=== PATIENT | male | born 1950 | race Caucasian/White ===

== ENCOUNTER 2018-08-11 18:18 | Inpatient (IN) | payer BC, OTHER ==
--- NOTE | 2018-08-11 19:53 | PDOC ---
History of Present Illness - General Chief Complaint: Revisit,Wound Recheck Stated Complaint: /ADMIT Time Seen by Provider: 08/11/18 19:24 - History of Present Illness Initial Comments: 68 year old male with PMH of HTN, HLD, diabetes, dementia (undefined), resting tremor, TIAs, peripheral neuropathy, CAD (s/p stent placement), psoriasis ( unrelated), and PAD presenting with 3-4 weeks of non-heeling left heel wound and right first toe wound. Patient states that he has been being treated as an outpatient by Dr. Mcelroy with oral abx. However, he has had mild drainage from the right first toe wound and neither wound has been healing well. Denies any fevers, chills, nausea, vomiting, diarrhea, or other symptoms. 08/11/18 20:21 Past History - Past Medical History Allergies/Adverse Reactions: Allergies Allergy/AdvReac Type Severity Reaction Status Date / Time Fish Containing Products Allergy Unknown Unverified 08/12/18 17:13 egg Allergy Verified 08/12/18 17:12 fish derived Allergy Unverified 08/12/18 17:13 Home Medications: Ambulatory Orders Atorvastatin Calcium [Lipitor] 20 mg PO DAILY 08/11/18 Citalopram Hydrobromide [Celexa -] 20 mg PO DAILY 08/11/18 Insulin Lispro [Humalog] 0 unit SQ TID 08/11/18 Metoprolol Tartrate 25 mg PO DAILY 08/11/18 COPD: No Diabetes: Yes - Suicide/Smoking/Psychosocial Hx Smoking History: Never smoked Have you smoked in the past 12 months: No Information on smoking cessation initiated: No Hx Alcohol Use: No Drug/Substance Use Hx: No Review of Systems - Review of Systems Constitutional: No: Chills, Diaphoresis, Fever, Loss of Appetite, Malaise Respiratory: No: Cough, Shortness of Breath Cardiac (ROS): No: Chest Pain, Lightheadedness, Palpitations ABD/GI: No: Diarrhea, Nausea, Vomiting : No: Discharge, Frequency, Flank Pain Musculoskeletal: Yes: Back Pain, Joint Pain. No: Gout Integumentary: Yes: Lesions Neurological: No: Headache, Numbness, Paresthesia Psychiatric: No: Anxiety, Depression Hematologic/Lymphatic: No: Anemia, Blood Clots *Physical Exam - Vital Signs Last Vital Signs Temp Pulse Resp BP Pulse Ox 97.6 F 76 18 123/63 100 08/11/18 18:42 08/11/18 18:42 08/11/18 18:42 08/11/18 18:42 08/11/18 18:42 - Physical Exam General Appearance: Yes: Nourished, Appropriately Dressed. No: Apparent Distress HEENT: positive: EOMI, NOE, Normal ENT Inspection, Normal Voice Neck: positive: Trachea midline, Normal Thyroid, Supple. negative: Tender, Rigid Respiratory/Chest: positive: Lungs Clear, Normal Breath Sounds. negative: Chest Tender, Respiratory Distress, Accessory Muscle Use Cardiovascular: positive: Regular Rhythm, Regular Rate Gastrointestinal/Abdominal: positive: Normal Bowel Sounds, Flat, Soft. negative : Tender Lymphatic: negative: Adenopathy, Tenderness Musculoskeletal: positive: Other (Left heel wound 2 cm superficial. Right plantar first toe wound). negative: Normal Inspection Integumentary: positive: Normal Color, Dry, Warm Neurologic: positive: Fully Oriented, Alert, Normal Mood/Affect, Normal Response , Motor Strength 5/5, Other (baseline tremor better with movement) ED Treatment Course - LABORATORY CBC & Chemistry Diagram: 08/12/18 06:15 08/12/18 06:15 Medical Decision Making - Medical Decision Making 68 year old male with PH of diabetes, HTN, PVD,and CAD presenting from Dr. Mcelroy's office for admission or non-healing diabetic ulcers that have failed outpatient abx. Labs WNL and patient treated with vanc/ zosyn at pseudomonal dosing. Patient pending call back from hospitalist for admission. 08/11/18 20:53 *DC/Admit/Observation/Transfer Diagnosis at time of Disposition: Diabetic foot Cellulitis Qualifiers: Site of cellulitis: extremity Site of cellulitis of extremity: lower extremity Laterality: left Qualified Code(s): L03.116 - Cellulitis of left lower limb - Discharge Dispostion Condition at time of disposition: Stable Decision to Admit order: Yes - Referrals - Patient Instructions - Post Discharge Activity
[2018-08-11] MEDS ORDERED: VANCOMYCIN HCL 1,500 MG in DEXTROSE 5%-WATER - 500 ML IVPB ONE (19:56)
[2018-08-11] MEDS ORDERED: PIPERACILLIN/TAZOB 4.5 GM 4.5 GM in DEXTROSE 5%-WATER 100 ML IVPB ONE (19:56)
[2018-08-11 20:09] LABS: HEMATOCRIT 38.5 % (35.4-49); HEMOGLOBIN 12.9 GM/dL (11.7-16.9); LYMPH % 19.4 % (8-40); MCH 31.7 pg (25.7-33.7); MCHC 33.6 g/dl (32.0-35.9); MEAN CELL VOLUME 94.3 fl (80-96); MEAN PLT VOLUME 8.3 fl (7.5-11.1); MONO % 7.1 % (3.8-10.2); NEUT % 70.5 % (42.8-82.8); PLATELET COUNT 219 K/MM3 (134-434); RBC 4.08 M/mm3 (4.00-5.60); RDW 13.4 % (11.9-15.9)
[2018-08-11] MEDS ORDERED: PIPERACILLIN/TAZOB 4.5 GM 4.5 GM/100 ML BAG IVPB ONE (20:21)
[2018-08-11 20:36] LABS: INR 1.08 (0.83-1.09); PROTHROMBIN TIME (PATIENT) 12.7 SEC (9.7-13.0)
[2018-08-11 20:38] LABS: ACTIVATED PTT 31.5 SECONDS (25.2-36.5)
--- NOTE | 2018-08-11 20:50 | PDOC ---
Documentation entered by Soha Sanchez SCRIBE, acting as scribe for Marge Ramirez DO. Marge Ramirez DO: This documentation has been prepared by the Daniel chapman Daisy, SCRIBE, under my direction and personally reviewed by me in its entirety. I confirm that the documentation accurately reflects all work, treatment, procedures, and medical decision making performed by me. Attending Attestation - Resident Resident Name: Karla Ballesteros - ED Attending Attestation I have performed the following: I have examined & evaluated the patient, The case was reviewed & discussed with the resident, I agree w/resident's findings & plan - HPI HPI: 08/11/18 20:21 The patient is a 68 year old male with a significant PMH of TIAs, HTN, HLD, DM, CAD s/p stent placement, dementia, psoriasis, and PAD who presents to the emergency department sent in by Dr. Muñoz and Dr. Escalona for evaluation of chronic foot wounds to rule out osteomyelitis. Patient was seen by podiatry for his wound to the right big toe tip and left heel. Patient has failed outpatient antibiotics for his non-healing wounds and was sent in for admission and IV antibiotics. Patient is unable to provide further history secondary to his dementia. The patient denies chest pain, shortness of breath, headache and dizziness. Denies fever, chills, nausea, vomit, diarrhea and constipation. Denies dysuria, frequency, urgency and hematuria. Allergies: NKA Past surgical history: None reported. Social history: No reported alcohol, drug or cigarette use. - Physicial Exam PE: 08/11/18 20:26 ADULT PHYSICAL EXAM Constitutional: Awake, alert, oriented. No acute distress. Eyes: PERRL. EOMI. Conjunctivae are not pale. ENT: Mucous membranes are moist and intact. Posterior pharynx without exudates or erythema. Uvula midline. Neck: Supple. Full ROM. No lymphadenopathy. Cardiovascular: Regular rate. Regular rhythm. S1, S2 regular. Distal pulses are 2+ and symmetric. Pulmonary/Chest: No evidence of respiratory distress. Clear to auscultation bilaterally No wheezing, rales or rhonchi. Abdominal: Soft and non-distended. There is no tenderness. No rebound, guarding or rigidity. No organomegaly. No palpable masses. Good bowel sounds. Back: No CVA tenderness. Musculoskeletal: No edema. No cyanosis. No clubbing. Full range of motion in all extremities. No calf tenderness. (+) Faint pulse. Skin: Skin is warm and dry. (+) Psoriasis plaque. (+) Non-healing wound to the right big to tip and left heel. Neurological: Alert and oriented to person, place, and time. Cranial nerves II -XII are grossly intact. (+) Essential tremor. - Medical Decision Making 08/11/18 20:37 a/p: 68yo male with b/l foot diabetic wounds that have failed outpt abx -currently on oral abx, but still with wounds, that are not healing -no purulent drainage -pt also with psoriasis and an essential tremor -pt follows with dr. montes and dr. muñoz -will need local wound care -labs, cultures, xrays -will need admission 08/11/18 21:08 pt with CKD at baseline K 5 no elevated wbc case discussed with ARNOLD Don who accepts pt to service Heart Score/ECG Review - ECG Intrepretation Comment:: 08/11/18 20:39 sinus at 73, rbbb, LAFB, abnl ekg
[2018-08-11 20:59] LABS: ALBUMIN 3.5 g/dl (3.4-5.0); ALK PHOS 118 U/L (45-117); ANION GAP 6 MMOL/L (8-16); BILIRUBIN,TOTAL 0.6 mg/dL (0.2-1); BLOOD UREA NITROGEN 35 mg/dL (7-18); CALCIUM 8.9 mg/dL (8.5-10.1); CHLORIDE 104 mmol/L (98-107); CO2 26 mmol/L (21-32); CREATININE 1.9 mg/dL (0.55-1.3); GLUCOSE,RANDOM 282 mg/dL (74-106); SGOT/AST 30 U/L (15-37); SGPT/ALT 56 U/L (13-61); SODIUM 136 mmol/L (136-145); TOT PROT 6.6 g/dl (6.4-8.2)
--- NOTE | 2018-08-11 21:13 | HP ---
Admitting History and Physical - Primary Care Physician PCP: Suhail Calvillo - Admission Chief Complaint: Non Healing Wounds L- Heel, R Great Toe History of Present Illness: This is a 68 y/o man with a PMHx of DM, HTN, CAD, PVD, Dementia, Psoriasis. Who presents to the ED sent in by Dr. Mcelroy for admission nfor non healing diabetic wounds to L- heel and R- great toe. Patient was being treated on ABX outpatient. 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 Cardiovascular: Yes: CAD, HTN, Other (PVD) Renal/: Yes: Renal Inusuff Dermatology: Yes: Psoriasis - Smoking History Smoking history: Never smoked Have you smoked in the past 12 months: No - Alcohol/Substance Use Hx Alcohol Use: No - Social History Usual Living Arrangement: Yes: With Spouse ADL: Independent History of Recent Travel: No Home Medications - Allergies Allergies/Adverse Reactions: Allergies Allergy/AdvReac Type Severity Reaction Status Date / Time No Known Allergies Allergy Verified 08/11/18 18:44 - Home Medications Home Medications: Ambulatory Orders Atorvastatin Calcium [Lipitor] 20 mg PO DAILY 08/11/18 Citalopram Hydrobromide [Celexa -] 20 mg PO DAILY 08/11/18 Insulin Lispro [Humalog] 0 unit SQ TID 08/11/18 Metoprolol Tartrate 25 mg PO DAILY 08/11/18 Review of Systems - Review of Systems Integumentary: reports: Wound Physical Examination Vital Signs: Vital Signs Temperature 97.6 F 08/11/18 18:42 Pulse Rate 76 08/11/18 18:42 Respiratory Rate 18 08/11/18 18:42 Blood Pressure 123/63 08/11/18 18:42 O2 Sat by Pulse Oximetry (%) 100 08/11/18 18:42 Labs: CBC, BMP 08/11/18 20:00 08/11/18 20:00 Imaging - Results Cat Scan: Pending Problem List - Problems (1) Non-healing wound Code(s): [id number] - (2) Diabetes mellitus Code(s): E11.9 - TYPE 2 DIABETES MELLITUS WITHOUT COMPLICATIONS (3) HTN (hypertension) Code(s): I10 - ESSENTIAL (PRIMARY) HYPERTENSION (4) CAD (coronary artery disease) Code(s): I25.10 - ATHSCL HEART DISEASE OF [place] CORONARY ARTERY W/O ANG PCTRS (5) Dementia Code(s): F03.90 - UNSPECIFIED DEMENTIA WITHOUT BEHAVIORAL DISTURBANCE (6) PVD (peripheral vascular disease) Code(s): I73.9 - PERIPHERAL VASCULAR DISEASE, UNSPECIFIED (7) CKD (chronic kidney disease) Code(s): N18.9 - CHRONIC KIDNEY DISEASE, UNSPECIFIED (8) Psoriasis Code(s): L40.9 - PSORIASIS, UNSPECIFIED Assessment/Plan This is a 68 y/o ma admitted for Non Healing Diabetic Wounds secondary to Failed Outpatient Therapy for further evaluation of their emergent condition Visit type - Emergency Visit Emergency Visit: Yes ED Registration Date: 08/11/18 Care time: The patient presented to the Emergency Department on the above date and was hospitalized for further evaluation of their emergent condition. - New Patient This patient is new to me today: Yes Date on this admission: 08/11/18 - Critical Care Critical Care patient: No
[2018-08-11] MEDS ORDERED: HEPARIN NA (PORCINE) 5,000 UNITS/ML 1ML VIAL ONE (22:03)
[2018-08-11] MEDS: HEPARIN NA (PORCINE) 5,000 UNITS/ML 1ML VIAL SQ SCH (22:07)
[2018-08-12 01:43] VITALS: BMI 29.4
[2018-08-12] MEDS: INSULIN SLIDING SCALE (NOVOLOG) 1 VIAL SQ SCH ×4 (06:14→21:45)
[2018-08-12 07:36] LABS: EOS % 2.4 % (0-4.5); HEMATOCRIT 37.6 % (35.4-49); HEMOGLOBIN 12.6 GM/dL (11.7-16.9); LYMPH % 24.6 % (8-40); MCH 31.3 pg (25.7-33.7); MCHC 33.5 g/dl (32.0-35.9); MEAN CELL VOLUME 93.4 fl (80-96); MEAN PLT VOLUME 8.8 fl (7.5-11.1); MONO % 7.7 % (3.8-10.2); NEUT % 64.3 % (42.8-82.8); PLATELET COUNT 197 K/MM3 (134-434); RBC 4.02 M/mm3 (4.00-5.60); RDW 13.4 % (11.9-15.9); WHITE BLOOD COUNT 7.8 K/mm3 (4.0-10.0)
[2018-08-12 08:06] LABS: ANION GAP 4 MMOL/L (8-16); BLOOD UREA NITROGEN 34 mg/dL (7-18); CALCIUM 8.8 mg/dL (8.5-10.1); CHLORIDE 105 mmol/L (98-107); CO2 28 mmol/L (21-32); CREATININE 1.6 mg/dL (0.55-1.3); GLUCOSE,RANDOM 186 mg/dL (74-106); POTASSIUM 5.3 mmol/L (3.5-5.1); SODIUM 138 mmol/L (136-145)
[2018-08-12] MEDS: CITALOPRAM HYDROBROMIDE 20 MG TABLET (FP) PO SCH (09:27)
[2018-08-12] MEDS: ATORVASTATIN CA 20 MG TABLET (FP) PO SCH (09:27)
[2018-08-12] MEDS: METOPROLOL TARTRATE 25 MG TABLET (FP) PO SCH (09:27)
[2018-08-12] MEDS: HEPARIN NA (PORCINE) 5,000 UNITS/ML 1ML VIAL SQ SCH ×2 (09:28→21:45)
--- NOTE | 2018-08-12 10:09 | CON.ID ---
Consult Consult Specialty:: infectious diseases Referred by:: Hospitalist Reason for Consultation:: left heel infection - History of Present Illness Chief Complaint: pain in left heel History of Present Illness: 68 year old male with a significant PMH of TIAs, HTN, HLD, DM, CAD s/p stent placement, dementia, psoriasis, and PAD admitted for ongoing of his legs.patient has been having issues with his rt toe for long time and not healing and now with callous formation. he is also having couple of months of swelling of his left heel with ongoing pain in the left heel patient had been given abx as out patient and he has failed treatment Patient is unable to provide further history secondary to his dementia. The patient denies chest pain, shortness of breath, headache and dizziness. Denies fever, chills, nausea, vomit, diarrhea and constipation. Denies dysuria, frequency, urgency and hematuria. 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 Cardio/Vascular: Yes: CAD, HTN, Other (PVD) Renal/: Yes: Renal Inusuff Dermatology: Yes: Psoriasis - Alcohol/Substance Use Hx Alcohol Use: No - Smoking History Smoking history: Never smoked Have you smoked in the past 12 months: No - Social History ADL: Independent History of Recent Travel: No Home Medications - Allergies Allergies/Adverse Reactions: Allergies Allergy/AdvReac Type Severity Reaction Status Date / Time No Known Allergies Allergy Verified 08/11/18 18:44 - Home Medications Home Medications: Ambulatory Orders Atorvastatin Calcium [Lipitor] 20 mg PO DAILY 08/11/18 Citalopram Hydrobromide [Celexa -] 20 mg PO DAILY 08/11/18 Insulin Lispro [Humalog] 0 unit SQ TID 08/11/18 Metoprolol Tartrate 25 mg PO DAILY 08/11/18 Review of Systems - Review of Systems Constitutional: reports: No Symptoms Eyes: reports: No Symptoms HENT: reports: No Symptoms Neck: reports: No Symptoms Cardiovascular: reports: No Symptoms Respiratory: reports: No Symptoms Gastrointestinal: reports: No Symptoms Genitourinary: reports: No Symptoms Musculoskeletal: reports: Other (left heel pain) Integumentary: reports: Other (callous on the rt toe and small left heel one with swelling of the left heel) Neurological: reports: No Symptoms Endocrine: reports: No Symptoms Hematology/Lymphatic: reports: No Symptoms Psychiatric: reports: No Symptoms Physical Exam Vital Signs: Vital Signs Temperature 99 F 08/12/18 06:22 Pulse Rate 75 08/12/18 06:22 Respiratory Rate 20 08/12/18 06:22 Blood Pressure 138/88 08/12/18 06:22 O2 Sat by Pulse Oximetry (%) 100 08/11/18 22:08 Constitutional: Yes: Well Nourished, No Distress, Calm HENT: Yes: Atraumatic, Normocephalic Neck: Yes: Supple, Trachea Midline Cardiovascular: Yes: Regular Rate and Rhythm Respiratory: Yes: Regular, CTA Bilaterally Gastrointestinal: Yes: Normal Bowel Sounds, Soft Musculoskeletal: Yes: WNL Extremities: Yes: Other (swelling of the left heel) Neurological: Yes: Alert, Oriented Psychiatric: Yes: Alert, Oriented Labs: CBC, BMP 08/12/18 06:15 08/12/18 06:15 Imaging - Results Chest X-ray: Report Reviewed, Image Reviewed X-ray: Report Reviewed, Image Reviewed Assessment/Plan patient with psoriasis diabetic wounds with mild cellulitis of the great rt toe and swelling of the left heel swelling of left heel r/o osteo of rt toe psoriasis plan will start patient on ceftriaxone await for imaging studies
[2018-08-12] MEDS ORDERED: cefTRIAXone SODIUM 1 GM VIAL ONE (11:12)
[2018-08-12] MEDS ORDERED: DEXTROSE 5%-WATER - 50 ML IVPB ONE (11:13)
[2018-08-12] MEDS: CEFTRIAXONE 1 GM in DEXTROSE 5%-WATER - 50 ML IVPB SCH (11:17)
--- NOTE | 2018-08-12 11:56 | CONSULT ---
- Consultation REQUESTING PROVIDER: CONSULT REQUEST: We have been asked to surgically evaluate this patient for (L foot ulcer). PCP:Rena Thacker HISTORY OF PRESENT ILLNESS: 68 y/o M w/ PMHx 68 DM, HTN, CAD s/p CABG, Psoriasis , sent in for admission by Dr Mcelroy and Dr. Calvillo for nonhealing L heel and R great toe ulcers. Pt reports he began to have pain in his heel approximately 1 month ago. Noted a small ulcer, was seen by his DPM shortly after and treated with various courses of PO abx (unsure of names). Pt states he has had no improvement and was sent in for further workup. Denies history of tobacco use, claudication, rest pain, prior nonhealing ulcers , prior vascular evaluation/intervention. At baseline pt lives home with and [id number]. Reports ambulating unlimited distances without issue or use of assistive devices. PMHx: as above PSHx: CABG ([facility]) Home Medications Medication Instructions Recorded Atorvastatin Calcium [Lipitor] 20 mg PO DAILY 08/11/18 Citalopram Hydrobromide [Celexa -] 20 mg PO DAILY 08/11/18 Insulin Lispro [Humalog] 0 unit SQ TID 08/11/18 Metoprolol Tartrate 25 mg PO DAILY 08/11/18 Allergies Allergy/AdvReac Type Severity Reaction Status Date / Time No Known Allergies Allergy Verified 08/11/18 18:44 REVIEW OF SYSTEMS: CONSTITUTIONAL: Absent: fever, chills CARDIOVASCULAR: Absent: chest pain RESPIRATORY: Absent: cough, shortness of breath GASTROINTESTINAL: Absent: abdominal pain PHYSICAL EXAM: GENERAL: Awake, alert, and fully oriented, in no acute distress. HEAD: Normal with no signs of trauma. LUNGS: Unlabored on RA LOWER EXTREMITIES: L foot with wound over left heel approximately 1x1cm (skin intact, black in color), no erythema or drainage, + TTP. R great toe with approx 3.5x3.5cm distal tip callus/ulcer with + fat necrosis expressed. No erythema, no drainage, no foul odor, no ttp. Vasc: 2+ b/l fem, b/l pop/dp not appreciated, b/l PT palpable Skin: whole body psoriatic lesions. Vital Signs Temperature 99 F 08/12/18 06:22 Pulse Rate 75 08/12/18 06:22 Respiratory Rate 20 08/12/18 06:22 Blood Pressure 138/88 08/12/18 06:22 O2 Sat by Pulse Oximetry (%) 100 08/11/18 22:08 Lab Results WBC 7.8 K/mm3 (4.0-10.0) 08/12/18 06:15 RBC 4.02 M/mm3 (4.00-5.60) 08/12/18 06:15 Hgb 12.6 GM/dL (11.7-16.9) 08/12/18 06:15 Hct 37.6 % (35.4-49) 08/12/18 06:15 MCV 93.4 fl (80-96) 08/12/18 06:15 MCHC 33.5 g/dl (32.0-35.9) 08/12/18 06:15 RDW 13.4 % (11.9-15.9) 08/12/18 06:15 Plt Count 197 K/MM3 (134-434) 08/12/18 06:15 Sodium 138 mmol/L (136-145) 08/12/18 06:15 Potassium 5.3 mmol/L (3.5-5.1) H 08/12/18 06:15 Chloride 105 mmol/L (98-107) 08/12/18 06:15 Carbon Dioxide 28 mmol/L (21-32) 08/12/18 06:15 Anion Gap 4 MMOL/L (8-16) L 08/12/18 06:15 BUN 34 mg/dL (7-18) H 08/12/18 06:15 Creatinine 1.6 mg/dL (0.55-1.3) H 08/12/18 06:15 Random Glucose 186 mg/dL (74-106) H 08/12/18 06:15 Calcium 8.8 mg/dL (8.5-10.1) 08/12/18 06:15 INR 1.08 (0.83-1.09) 08/11/18 20:00 A/P: 68 y/o M w/ PMHx 68 DM, HTN, CAD s/p CABG, Psoriasis, sent in for admission by Dr Mcelroy and Dr. Calvillo for nonhealing L heel and R great toe ulcers. Pt Dr Stepanian pt had outpt PVRs which revealed significant vascular disease Pt with multiple b/l foot wounds/callus with no signs of infx -MRI pending per Podiatry -Abx per ID -Recommend offloading to b/l heels, Bacitracin to R great toe -Dr Birmingham will be by to evaluate wounds and need for surgical intervention (pt has elevated creatinine -would hold off on CTA at this time, Hydrate and follow creatinine -Would be helpful to view outpt PVR and any additional testing if available -Glucose control d/w attending Dr Birmingham
[2018-08-12] MEDS ORDERED: SODIUM POLYSTYRENE SULFONATE 15 GM/60 ML BOTTLE PO ONE (12:00)
--- NOTE | 2018-08-12 12:01 | PN ---
Progress Note, Physician Chief Complaint: Foot Wound CKD DM History of Present Illness: Previous notes and events reviewed awake and alert NAD K+ 5.3 denies chest pain or SOB - Current Medication List Current Medications: Active Medications Atorvastatin Calcium (Lipitor -) 20 mg PO DAILY [facility] Last Admin: 08/12/18 09:27 Dose: 20 mg Citalopram Hydrobromide (Celexa -) 20 mg PO DAILY [facility] Last Admin: 08/12/18 09:27 Dose: 20 mg Heparin Sodium (Porcine) (Heparin -) 5,000 unit SQ BID [facility] Last Admin: 08/12/18 09:28 Dose: 5,000 unit Ceftriaxone Sodium 1 gm/ (Dextrose) 50 mls @ 100 mls/hr IVPB DAILY [facility]; Protocol Last Admin: 08/12/18 11:17 Dose: 100 mls/hr Insulin Aspart (Novolog Vial Sliding Scale -) 1 vial SQ ACHS [facility]; Protocol Last Admin: 08/12/18 06:14 Dose: 2 units Metoprolol Tartrate (Lopressor -) 25 mg PO DAILY [facility] Last Admin: 08/12/18 09:27 Dose: 25 mg - Objective Vital Signs: Vital Signs Temperature 99 F 08/12/18 06:22 Pulse Rate 75 08/12/18 06:22 Respiratory Rate 20 08/12/18 06:22 Blood Pressure 138/88 08/12/18 06:22 O2 Sat by Pulse Oximetry (%) 100 08/11/18 22:08 Constitutional: Yes: No Distress, Calm Eyes: Yes: Conjunctiva Clear HENT: Yes: Atraumatic Cardiovascular: Yes: Regular Rate and Rhythm Respiratory: Yes: Regular, CTA Bilaterally Gastrointestinal: Yes: Normal Bowel Sounds, Soft Genitourinary: Yes: Incontinence Musculoskeletal: Yes: Muscle Weakness Extremities: Yes: Erythema Edema: No Integumentary: Yes: Other (erythema R great toe) Neurological: Yes: Alert, Pre-Existing Deficit Psychiatric: Yes: Alert Labs: CBC, BMP 08/12/18 06:15 08/12/18 06:15 INR, PTT INR 1.08 (0.83-1.09) 08/11/18 20:00 Problem List - Problems (1) CAD (coronary artery disease) Assessment/Plan: -continue with Atorvastatin Code(s): I25.10 - ATHSCL HEART DISEASE OF [place] CORONARY ARTERY W/O ANG PCTRS (2) CKD (chronic kidney disease) Assessment/Plan: -Renal on board -pending renal US -avoid nephrotoxins, NSAIDs Code(s): N18.9 - CHRONIC KIDNEY DISEASE, UNSPECIFIED (3) Dementia Assessment/Plan: -neurology consult - Code(s): F03.90 - UNSPECIFIED DEMENTIA WITHOUT BEHAVIORAL DISTURBANCE (4) HTN (hypertension) Assessment/Plan: -continue Metoprolol -low Na diet Code(s): I10 - ESSENTIAL (PRIMARY) HYPERTENSION (5) Non-healing wound Assessment/Plan: -Podiatry and ID on board -IV Ceftriaxone -no leukocytosis -afebrile Code(s): [id number] - (6) Hyperkalemia Assessment/Plan: -K 5.3--Kayexalte 15g PO x 1 -Kayexalate 30g M-W-F -monitor electrolytes daily Code(s): E87.5 - HYPERKALEMIA (7) Diabetes mellitus Assessment/Plan: -BGM ACHS -ISS -diabetic diet Code(s): E11.9 - TYPE 2 DIABETES MELLITUS WITHOUT COMPLICATIONS Assessment/Plan see problem list
--- NOTE | 2018-08-12 12:15 | CONSULT ---
Consult Consult Specialty:: podiatry Reason for Consultation:: wound right big toe. wound left heel. 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 Cardio/Vascular: Yes: CAD, HTN, Other (PVD) Renal/: Yes: Renal Inusuff Dermatology: Yes: Psoriasis - Alcohol/Substance Use Hx Alcohol Use: No - Smoking History Smoking history: Never smoked Have you smoked in the past 12 months: No - Social History ADL: Independent History of Recent Travel: No Home Medications - Allergies Allergies/Adverse Reactions: Allergies Allergy/AdvReac Type Severity Reaction Status Date / Time Fish Containing Products Allergy Unknown Unverified 08/12/18 17:13 egg Allergy Verified 08/12/18 17:12 fish derived Allergy Unverified 08/12/18 17:13 - Home Medications Home Medications: Ambulatory Orders Atorvastatin Calcium [Lipitor] 20 mg PO DAILY 08/11/18 Citalopram Hydrobromide [Celexa -] 20 mg PO DAILY 08/11/18 Insulin Lispro [Humalog] 0 unit SQ TID 08/11/18 Metoprolol Tartrate 25 mg PO DAILY 08/11/18 Physical Exam Vital Signs: Vital Signs Temperature 99 F 08/12/18 06:22 Pulse Rate 75 08/12/18 06:22 Respiratory Rate 20 08/12/18 06:22 Blood Pressure 138/88 08/12/18 06:22 O2 Sat by Pulse Oximetry (%) 100 08/11/18 22:08 Extremities: Yes: Other (right big toe cellulitis with grade wound, -drainage, -mal odor left heel eschar, -drainage, -cellulitis,) Labs: CBC, BMP 08/12/18 06:15 08/12/18 06:15 Assessment/Plan r/o om wounds b/l feet santyl to all wounds. mri b/l feet. santyl to wounds. labs ordered.
--- NOTE | 2018-08-12 12:15 | EKG ---
Test Reason : Blood Pressure : / mmHG Vent. Rate : 073 BPM Atrial Rate : 073 BPM P-R Int : 192 ms QRS Dur : 140 ms QT Int : 422 ms P-R-T Axes : 035 -69 039 degrees QTc Int : 464 ms NORMAL SINUS RHYTHM POSSIBLE LEFT ATRIAL ENLARGEMENT RIGHT BUNDLE BRANCH BLOCK LEFT ANTERIOR FASCICULAR BLOCK BIFASCICULAR BLOCK ABNORMAL ECG WHEN COMPARED WITH ECG OF 16-JUN-2000 16:46, (RBBB AND LEFT ANTERIOR FASCICULAR BLOCK) IS NOW PRESENT Confirmed by GAVINO CONDON MD ([id number]) on 08/12/2018 12:14:57 PM Referred By: Confirmed By:GAVINO CONDON MD
--- NOTE | 2018-08-12 13:59 | CONSULT ---
Consult - text type - Consultation Consultation Note: Renal consult for JAMARCUS vs. CKD This is a 68 year old gentleman with hx of CKD, chronic hyperkalemia ( on kayexalate 3x weekly), DM, Hypertension, CAD s/p PCI/CABG, PVD presented with non-healing lower extremity ulcers and noted to have Cr of 1.8. [facility] ~[facility]. Denies any sob, cp, abd pain, fever, chils , N/V/D. No NSAID use, no recent contrast expsoure, no fleet enemas. No POLLY/ARB taken at home. Making urine as per patient. No flank or bladder pain. No symptoms of retention. Denies any LE edema. No recent antibiotic use. PMhx: as above Allergies: NKDA Family Hx: NC Social Hx: No T/A/D ROS: as per HPI Home Medications Medication Instructions Recorded Atorvastatin Calcium [Lipitor] 20 mg PO DAILY 08/11/18 Citalopram Hydrobromide [Celexa -] 20 mg PO DAILY 08/11/18 Insulin Lispro [Humalog] 0 unit SQ TID 08/11/18 Metoprolol Tartrate 25 mg PO DAILY 08/11/18 Vital Signs Temperature 98.6 F 08/12/18 13:48 Pulse Rate 67 08/12/18 13:48 Respiratory Rate 18 08/12/18 13:48 Blood Pressure 100/51 L 08/12/18 13:48 O2 Sat by Pulse Oximetry (%) 100 08/12/18 09:00 NAD awake and alert neck supple, no JVD RRR, No M/R CTA, no rales or wheeze soft NT/ND no LE edema, clubbing or cyanosis CBC, BMP 08/12/18 06:15 08/12/18 06:15 Current Medications Atorvastatin Calcium (Lipitor -) 20 mg PO DAILY [facility] Last Admin: 08/12/18 09:27 Dose: 20 mg Citalopram Hydrobromide (Celexa -) 20 mg PO DAILY [facility] Last Admin: 08/12/18 09:27 Dose: 20 mg Heparin Sodium (Porcine) (Heparin -) 5,000 unit SQ BID [facility] Last Admin: 08/12/18 09:28 Dose: 5,000 unit Ceftriaxone Sodium 1 gm/ (Dextrose) 50 mls @ 100 mls/hr IVPB DAILY [facility]; Protocol Last Admin: 08/12/18 11:17 Dose: 100 mls/hr Insulin Aspart (Novolog Vial Sliding Scale -) 1 vial SQ ACHS [facility]; Protocol Last Admin: 08/12/18 12:03 Dose: 2 units Metoprolol Tartrate (Lopressor -) 25 mg PO DAILY [facility] Last Admin: 08/12/18 09:27 Dose: 25 mg 68 year old gentleman with hx of CKD, chronic hyperkalemia (on kayexalate 3x weekly), DM, Hypertension, CAD s/p PCI/CABG, PVD presented with non-healing lower extremity ulcers and noted to have Cr of 1.8. #JAMARCUS on CKD #CKD stage 3 #Chronic Hyperkalemia #LE ulcers/PVD #DM #Hypertension #CAD Check urine stuides and renal US Continue trial of isotonic IVF for additional 24 hours continue kayexlate 30g on No acute need for CREDIT INVESTIGATOR continue Abx as per primary team Podiatry follow up Insulin as per primary team Avoid IV contrast, NSAIDs, POLLY/ARB for the time being Thank you Will follow Harpal Luis DO
[2018-08-12 15:58] LABS: URINE APPEARANCE CLEAR; URINE BILIRUBIN NEGATIVE (NEGATIVE); URINE COLOR YELLOW; URINE GLUCOSE (UA) 1+ (NEGATIVE); URINE KETONE NEGATIVE (NEGATIVE); URINE LEUK ESTERASE NEGATIVE (NEGATIVE); URINE NITRITE NEGATIVE (NEGATIVE); URINE PROTEIN NEGATIVE (NEGATIVE); URINE UROBILINOGEN 0.2 mg/dL (0.2-1.0)
--- NOTE | 2018-08-12 16:52 | PN ---
Progress Note (short form) - Note Progress Note: Vascular Surgery Pt seen and examined. Spoke to pt and at bedside. Pt has bilateral great toe lesions. Right great toe has ulcer there for 3 weeks. Pt does not have palpable pulses and is a diabetic with neuropathy. Pt has renal insuff -- creatinine 1.6. Cannot get CTA. MRI pending to rule out osteo. Pt will need RLE angiogram with CO2 to check circulation. Once cleared from a cardiac and medical standpoint - will proceed. Jay Birmingham DO
[2018-08-12] MEDS: SODIUM CHLORIDE 1,000 ML IV SCH (17:13)
--- NOTE | 2018-08-12 20:19 | CONSULT ---
Consult - text type - Consultation Consultation Note: NEUROLOGY CONSULTATION is greatly appreciated: Events reviewed and discussed with patient's . This 68 yo RH m man with h/o HTN, Chol, DM, on Atorvastatin; Citalopram 20 mg; Insulin; and Metoprolol Tartrate 25 mg, is admitted due to poorly healing foot wounds. His describes progressive cognitive decline since an episode of (? prolonged?) hypoglycemia 3-4 years ago. Was on Donepezil but had syncope (both donepezil and metoprolol were reportedly D/C'ed). Now 1-2 years of progressive rest tremors. Followed by Dr. Kevin Cardona at [facility]. Apparently failed trial of pramipexole? Recent Dopamine Transporter (DIANA) scan negative for Parkinson's disease (PD). His notes additional mood and behavioral changes that are "a little better " on Citalopram. MRI of brain (performed here in 2007) shows early atrophy, mild ventriculomegally, and microvascular changes. DAVID: Diffuse psoriatic changes. No bruits. No head trauma. No DP pulses. Atrophic changes both feet, calves. NEURO: Awake, alert, cooperative. Doesn't know he is in a hospital. 2011. Jose. Recalls 0 of 3 at 1 min. CN: Rhythmic jaw tremor (6 cps). Full simmons ad EOM's. Sl slowed tongue MARLINE's. Gag OK Motor: Intermittent, rhythmic rest tremor (4-5 cps) B/L. + Cogwheel rigidity. Normal strength. Sl decreased MARLINE's. Brisk reflexes except AJ's. Plantars silent. Coord: No FTN dystaxia Sensory: Reduced vibration to both ankles. Romberg + Gait: Erect posture, shortened strides. No festination. IMP: Moderately severe, B/L cerebral dysfunction (OMS, Chronic)- Probably Alzheimer's disease (AD) vs microvascular Extrapyramidal tremor. May be Parkinsonism on a vascular basis (Not PD) Diabetic peripheral neuropathy. SUGGEST: Check B12, TSH, RPR Update MRI of brain (C-) Review treatment records- a trial of L-Dopa should be considered if not done. Thank you very much, Barrington Garcia MD
[2018-08-12] MEDS: COLLAGENASE CLOSTRIDIUM HIST. 30 GRAMS TUBE TP SCH (21:45)
--- NOTE | 2018-08-13 00:42 | CONSULT ---
Consult Consult Specialty:: endocrine Referred by:: evelin muniz np Reason for Consultation:: uncontrolled dm - History of Present Illness Chief Complaint: diabetic foot infection History of Present Illness: 68 y/o man with a PMHx of DM, HTN, CAD, PVD, Dementia, Psoriasis. Who presented with non healing diabetic wounds to L- heel and R- great toe. Patient was being treated on ABX outpatient,however failed therapy and requires iv antibiotic and surgical care for non healing foot infection,high sugars,he has had difficulty controlling sugars,despite family support and insulin pump therapy,he has labile blood sugars. 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 Cardio/Vascular: Yes: CAD, HTN, Other (PVD) Renal/: Yes: Renal Inusuff Dermatology: Yes: Psoriasis - Alcohol/Substance Use Hx Alcohol Use: No - Smoking History Smoking history: Never smoked Have you smoked in the past 12 months: No - Social History ADL: Independent History of Recent Travel: No Home Medications - Allergies Allergies/Adverse Reactions: Allergies Allergy/AdvReac Type Severity Reaction Status Date / Time Fish Containing Products Allergy Unknown Unverified 08/12/18 17:13 egg Allergy Verified 08/12/18 17:12 fish derived Allergy Unverified 08/12/18 17:13 - Home Medications Home Medications: Ambulatory Orders Atorvastatin Calcium [Lipitor] 20 mg PO DAILY 08/11/18 Citalopram Hydrobromide [Celexa -] 20 mg PO DAILY 08/11/18 Insulin Lispro [Humalog] 0 unit SQ TID 08/11/18 Metoprolol Tartrate 25 mg PO DAILY 08/11/18 Review of Systems - Review of Systems Constitutional: reports: Weakness Eyes: reports: Blurred Vision HENT: reports: No Symptoms Neck: reports: No Symptoms Cardiovascular: reports: Shortness of Breath Respiratory: reports: Exercise Intolerance, SOB on Exertion Gastrointestinal: reports: Constipation Genitourinary: reports: No Symptoms Breasts: reports: No Symptoms Reported Neurological: reports: Confusion, Dizziness, Incoordination, Pre-Existing Deficit, Tremors, Unsteady Gait, Weakness Endocrine: reports: Unexplained Weight Gain Physical Exam Vital Signs: Vital Signs Temperature 98.3 F 08/12/18 23:28 Pulse Rate 86 08/12/18 23:28 Respiratory Rate 20 08/12/18 23:28 Blood Pressure 121/78 08/12/18 23:28 O2 Sat by Pulse Oximetry (%) 100 08/12/18 21:00 Constitutional: Yes: Anxious Eyes: Yes: EOM Intact HENT: Yes: Normocephalic Neck: Yes: Trachea Midline Cardiovascular: Yes: Regular Rate and Rhythm Respiratory: Yes: CTA Bilaterally Gastrointestinal: Yes: Normal Bowel Sounds ...Rectal Exam: Yes: Deferred Breast(s): Yes: WNL Musculoskeletal: Yes: Muscle Pain, Muscle Weakness Extremities: Yes: Cold, Delayed Capillary Refill Edema: LLE: Trace, RLE: Trace Integumentary: Yes: Rash, Onychomycosis, Venous Stasis Changes Wound/Incision: Yes: Dressing Removed, Draining, Excoriated Neurological: Yes: Alert, Oriented, Tremors, Unsteady Gait Labs: CBC, BMP 08/12/18 06:15 08/12/18 06:15 Problem List - Problems (1) CKD (chronic kidney disease) Code(s): N18.9 - CHRONIC KIDNEY DISEASE, UNSPECIFIED (2) Cellulitis Code(s): L03.90 - CELLULITIS, UNSPECIFIED Qualifiers: Site of cellulitis: extremity Site of cellulitis of extremity: lower extremity Laterality: left Qualified Code(s): L03.116 - Cellulitis of left lower limb (3) Dementia Code(s): F03.90 - UNSPECIFIED DEMENTIA WITHOUT BEHAVIORAL DISTURBANCE (4) Diabetes mellitus Code(s): E11.9 - TYPE 2 DIABETES MELLITUS WITHOUT COMPLICATIONS (5) Diabetic foot Code(s): E11.8 - TYPE 2 DIABETES MELLITUS WITH UNSPECIFIED COMPLICATIONS (6) HTN (hypertension) Code(s): I10 - ESSENTIAL (PRIMARY) HYPERTENSION (7) Hyperkalemia Code(s): E87.5 - HYPERKALEMIA Assessment/Plan Current Active Problems CAD (coronary artery disease) (Acute) CKD (chronic kidney disease) (Acute) Cellulitis (Acute) Dementia (Acute) Diabetes mellitus (Acute) Diabetic foot (Acute) HTN (hypertension) (Acute) Hyperkalemia (Acute) Non-healing wound (Acute) PVD (peripheral vascular disease) (Acute) Psoriasis (Acute) Abnormal Lab Results 08/12/18 08/12/18 08/12/18 06:15 14:36 14:36 Potassium 5.3 H Anion Gap 4 L BUN 34 H Creatinine 1.6 H Random Glucose 186 H Urine Glucose (UA) 1+ H U Random Total Protein 29.8 H Laboratory Results - last 24 hr 08/12/18 08/12/18 08/12/18 06:13 06:15 06:15 WBC 7.8 RBC 4.02 Hgb 12.6 Hct 37.6 MCV 93.4 MCH 31.3 MCHC 33.5 RDW 13.4 Plt Count 197 MPV 8.8 Absolute Neuts (auto) 5.0 Neutrophils % 64.3 Lymphocytes % 24.6 D Monocytes % 7.7 Eosinophils % 2.4 Basophils % 1.0 Nucleated RBC % 0 Sodium 138 Potassium 5.3 H Chloride 105 Carbon Dioxide 28 Anion Gap 4 L BUN 34 H Creatinine 1.6 H Creat Clearance w eGFR 43.20 POC Glucometer 185 Random Glucose 186 H Calcium 8.8 Urine Color Urine Appearance Urine pH Ur Specific [place] Urine Protein Urine Glucose (UA) Urine Ketones Urine Blood Urine Nitrite Urine Bilirubin Urine Urobilinogen Ur Leukocyte Esterase U Random Total Protein Ur Random Sodium Ur Random Urea Nitrogn 08/12/18 08/12/18 08/12/18 11:17 14:36 14:36 WBC RBC Hgb Hct MCV MCH MCHC RDW Plt Count MPV Absolute Neuts (auto) Neutrophils % Lymphocytes % Monocytes % Eosinophils % Basophils % Nucleated RBC % Sodium Potassium Chloride Carbon Dioxide Anion Gap BUN Creatinine Creat Clearance w eGFR POC Glucometer 157 Random Glucose Calcium Urine Color Yellow Urine Appearance Clear Urine pH 6.0 Ur Specific [place] 1.022 Urine Protein Negative Urine Glucose (UA) 1+ H Urine Ketones Negative Urine Blood Negative Urine Nitrite Negative Urine Bilirubin Negative Urine Urobilinogen 0.2 Ur Leukocyte Esterase Negative U Random Total Protein Ur Random Sodium 107 Ur Random Urea Nitrogn 08/12/18 08/12/18 08/12/18 14:36 14:36 17:11 WBC RBC Hgb Hct MCV MCH MCHC RDW Plt Count MPV Absolute Neuts (auto) Neutrophils % Lymphocytes % Monocytes % Eosinophils % Basophils % Nucleated RBC % Sodium Potassium Chloride Carbon Dioxide Anion Gap BUN Creatinine Creat Clearance w eGFR POC Glucometer 210 Random Glucose Calcium Urine Color Urine Appearance Urine pH Ur Specific [place] Urine Protein Urine Glucose (UA) Urine Ketones Urine Blood Urine Nitrite Urine Bilirubin Urine Urobilinogen Ur Leukocyte Esterase U Random Total Protein 29.8 H Ur Random Sodium Ur Random Urea Nitrogn 909 08/12/18 20:44 WBC RBC Hgb Hct MCV MCH MCHC RDW Plt Count MPV Absolute Neuts (auto) Neutrophils % Lymphocytes % Monocytes % Eosinophils % Basophils % Nucleated RBC % Sodium Potassium Chloride Carbon Dioxide Anion Gap BUN Creatinine Creat Clearance w eGFR POC Glucometer 190 Random Glucose Calcium Urine Color Urine Appearance Urine pH Ur Specific [place] Urine Protein Urine Glucose (UA) Urine Ketones Urine Blood Urine Nitrite Urine Bilirubin Urine Urobilinogen Ur Leukocyte Esterase U Random Total Protein Ur Random Sodium Ur Random Urea Nitrogn plan: bgm qid novolog doses scaled levemir 15 units daily ck tsh free t4
[2018-08-13] MEDS: INSULIN SLIDING SCALE (NOVOLOG) 1 VIAL SQ SCH ×4 (06:29→21:34)
[2018-08-13] MEDS: INSULIN (LEVEMIR) 100 UNITS/ML UNITS SQ SCH (06:30)
[2018-08-13 08:21] LABS: BASO % 0.9 % (0-2.0); EOS % 2.7 % (0-4.5); HEMATOCRIT 38.8 % (35.4-49); LYMPH % 20.7 % (8-40); MCH 31.6 pg (25.7-33.7); MCHC 33.6 g/dl (32.0-35.9); MEAN CELL VOLUME 94.2 fl (80-96); MEAN PLT VOLUME 8.6 fl (7.5-11.1); MONO % 7.5 % (3.8-10.2); NEUT % 68.2 % (42.8-82.8); PLATELET COUNT 186 K/MM3 (134-434); RBC 4.12 M/mm3 (4.00-5.60); RDW 13.3 % (11.9-15.9); WHITE BLOOD COUNT 7.2 K/mm3 (4.0-10.0)
[2018-08-13 08:34] LABS: ALBUMIN 3.1 g/dl (3.4-5.0); ALK PHOS 96 U/L (45-117); ANION GAP 7 MMOL/L (8-16); BLOOD UREA NITROGEN 29 mg/dL (7-18); CALCIUM 8.5 mg/dL (8.5-10.1); CHLORIDE 106 mmol/L (98-107); CO2 27 mmol/L (21-32); CREATININE 1.4 mg/dL (0.55-1.3); GLUCOSE,RANDOM 129 mg/dL (74-106); MAGNESIUM 2.1 mg/dL (1.8-2.4); PHOSPHOROUS 3.6 mg/dL (2.5-4.9); POTASSIUM 4.6 mmol/L (3.5-5.1); SGOT/AST 20 U/L (15-37); SGPT/ALT 37 U/L (13-61); SODIUM 140 mmol/L (136-145); TOT PROT 5.9 g/dl (6.4-8.2)
[2018-08-13] MEDS ORDERED: DEXTROSE 5%-WATER - 50 ML IVPB ONE (09:24)
[2018-08-13] MEDS ORDERED: cefTRIAXone SODIUM 1 GM VIAL ONE (09:24)
[2018-08-13 09:31] LABS: ERYTHROCYTE SEDIMENTATION RATE 16 mm/hr (0-20)
[2018-08-13] MEDS: SODIUM POLYSTYRENE SULFONATE 15 GM/60 ML BOTTLE PO SCH (10:37)
[2018-08-13] MEDS: COLLAGENASE CLOSTRIDIUM HIST. 30 GRAMS TUBE TP SCH (10:39)
[2018-08-13] MEDS: HEPARIN NA (PORCINE) 5,000 UNITS/ML 1ML VIAL SQ SCH ×2 (10:39→21:33)
[2018-08-13] MEDS: METOPROLOL TARTRATE 25 MG TABLET (FP) PO SCH (10:39)
[2018-08-13] MEDS: CEFTRIAXONE 1 GM in DEXTROSE 5%-WATER - 50 ML IVPB SCH (10:39)
[2018-08-13] MEDS: ATORVASTATIN CA 20 MG TABLET (FP) PO SCH (10:39)
[2018-08-13] MEDS: CITALOPRAM HYDROBROMIDE 20 MG TABLET (FP) PO SCH (10:39)
--- NOTE | 2018-08-13 10:50 | PN ---
Progress Note, Physician History of Present Illness: stable no new issues - Current Medication List Current Medications: Active Medications Atorvastatin Calcium (Lipitor -) 20 mg PO DAILY [facility] Last Admin: 08/13/18 10:39 Dose: 20 mg Citalopram Hydrobromide (Celexa -) 20 mg PO DAILY [facility] Last Admin: 08/13/18 10:39 Dose: 20 mg Collagenase (Santyl -) 1 applic TP DAILY [facility]; Protocol Last Admin: 08/13/18 10:39 Dose: 1 applic Heparin Sodium (Porcine) (Heparin -) 5,000 unit SQ BID [facility] Last Admin: 08/13/18 10:39 Dose: 5,000 unit Ceftriaxone Sodium 1 gm/ (Dextrose) 50 mls @ 100 mls/hr IVPB DAILY [facility]; Protocol Last Admin: 08/13/18 10:39 Dose: 100 mls/hr Sodium Chloride (Normal Saline -) 1,000 mls @ 100 mls/hr IV ASDIR [facility] Stop: 08/13/18 16:44 Last Admin: 08/12/18 17:13 Dose: 100 mls/hr Insulin Aspart (Novolog Vial Sliding Scale -) 1 vial SQ ACHS [facility]; Protocol Last Admin: 08/13/18 06:29 Dose: Not Given Insulin Detemir (Levemir Vial) 15 units SQ AM [facility] Last Admin: 08/13/18 06:30 Dose: 15 units Metoprolol Tartrate (Lopressor -) 25 mg PO DAILY [facility] Last Admin: 08/13/18 10:39 Dose: 25 mg Sodium Polystyrene Sulfonate (Kayexalate -) 30 gm PO [id number]@1000 [facility] Last Admin: 08/13/18 10:37 Dose: 30 gm - Objective Vital Signs: Vital Signs Temperature 97.8 F 08/13/18 05:53 Pulse Rate 76 08/13/18 05:53 Respiratory Rate 20 08/13/18 05:53 Blood Pressure 155/80 08/13/18 05:53 O2 Sat by Pulse Oximetry (%) 100 08/12/18 21:00 Constitutional: Yes: No Distress, Calm Cardiovascular: Yes: Regular Rate and Rhythm Respiratory: Yes: Regular, CTA Bilaterally Gastrointestinal: Yes: Normal Bowel Sounds, Soft Musculoskeletal: Yes: WNL Extremities: Yes: Other Neurological: Yes: Alert, Oriented Psychiatric: Yes: Alert, Oriented Labs: CBC, BMP 08/13/18 06:15 04/19/19 06:15 INR, PTT INR 1.08 (0.83-1.09) 08/11/18 20:00 Assessment/Plan patient with psoriasis diabetic wounds with mild cellulitis of the great rt toe and swelling of the left heel swelling of left heel r/o osteo of rt toe psoriasis plan will start patient on ceftriaxone await for report on imaging studies
--- NOTE | 2018-08-13 11:07 | PN ---
Progress Note, Physician Chief Complaint: Foot Wound CKD DM History of Present Illness: Previous notes and events reviewed awake and alert NAD denies chest pain or SOB - Current Medication List Current Medications: Active Medications Atorvastatin Calcium (Lipitor -) 20 mg PO DAILY [facility] Last Admin: 08/13/18 10:39 Dose: 20 mg Citalopram Hydrobromide (Celexa -) 20 mg PO DAILY [facility] Last Admin: 08/13/18 10:39 Dose: 20 mg Collagenase (Santyl -) 1 applic TP DAILY [facility]; Protocol Last Admin: 08/13/18 10:39 Dose: 1 applic Heparin Sodium (Porcine) (Heparin -) 5,000 unit SQ BID [facility] Last Admin: 08/13/18 10:39 Dose: 5,000 unit Ceftriaxone Sodium 1 gm/ (Dextrose) 50 mls @ 100 mls/hr IVPB DAILY [facility]; Protocol Last Admin: 08/13/18 10:39 Dose: 100 mls/hr Sodium Chloride (Normal Saline -) 1,000 mls @ 100 mls/hr IV ASDIR [facility] Stop: 08/13/18 16:44 Last Admin: 08/12/18 17:13 Dose: 100 mls/hr Insulin Aspart (Novolog Vial Sliding Scale -) 1 vial SQ ACHS [facility]; Protocol Last Admin: 08/13/18 06:29 Dose: Not Given Insulin Detemir (Levemir Vial) 15 units SQ AM [facility] Last Admin: 08/13/18 06:30 Dose: 15 units Metoprolol Tartrate (Lopressor -) 25 mg PO DAILY [facility] Last Admin: 08/13/18 10:39 Dose: 25 mg Sodium Polystyrene Sulfonate (Kayexalate -) 30 gm PO MoWeFr@1000 [facility] Last Admin: 08/13/18 10:37 Dose: 30 gm - Objective Vital Signs: Vital Signs Temperature 97.8 F 08/13/18 05:53 Pulse Rate 76 08/13/18 05:53 Respiratory Rate 20 08/13/18 05:53 Blood Pressure 155/80 08/13/18 05:53 O2 Sat by Pulse Oximetry (%) 100 08/12/18 21:00 Constitutional: Yes: No Distress, Calm Eyes: Yes: Conjunctiva Clear HENT: Yes: Atraumatic Cardiovascular: Yes: Regular Rate and Rhythm Respiratory: Yes: Regular, CTA Bilaterally Gastrointestinal: Yes: Normal Bowel Sounds, Soft Musculoskeletal: Yes: Muscle Weakness Extremities: Yes: WNL Edema: No Neurological: Yes: Alert, Oriented Psychiatric: Yes: Alert Labs: CBC, BMP 08/13/18 06:15 08/13/18 06:15 INR, PTT INR 1.08 (0.83-1.09) 08/11/18 20:00 Microbiology 08/11/18 20:00 Blood - Peripheral Venous Blood Culture - Preliminary NO GROWTH OBTAINED AFTER 24 HOURS, INCUBATION TO CONTINUE FOR 4 DAYS. 08/11/18 20:00 Blood - Peripheral Venous Blood Culture - Preliminary NO GROWTH OBTAINED AFTER 24 HOURS, INCUBATION TO CONTINUE FOR 4 DAYS. Problem List - Problems (1) CAD (coronary artery disease) Assessment/Plan: -continue with Atorvastatin Code(s): I25.10 - ATHSCL HEART DISEASE OF [place] CORONARY ARTERY W/O ANG PCTRS (2) CKD (chronic kidney disease) Assessment/Plan: -Renal on board -Renal US shows no hydronephrosis, no discrete mass, lesion, or calculus -BUN/Cr 29/1.4 -avoid nephrotoxins, NSAIDs Code(s): N18.9 - CHRONIC KIDNEY DISEASE, UNSPECIFIED (3) Dementia Assessment/Plan: -neurology on board -Brain MRI ordered Code(s): F03.90 - UNSPECIFIED DEMENTIA WITHOUT BEHAVIORAL DISTURBANCE (4) HTN (hypertension) Assessment/Plan: -continue Metoprolol -low Na diet Code(s): I10 - ESSENTIAL (PRIMARY) HYPERTENSION (5) Non-healing wound Assessment/Plan: -Podiatry and ID on board -IV Ceftriaxone -no leukocytosis -afebrile -MRI of B/L LE pending--R/O Osteomyelitis Code(s): WRJ2095 - (6) Hyperkalemia Assessment/Plan: -K 4.6 -Kayexalate 30g M-W-F -monitor electrolytes daily Code(s): E87.5 - HYPERKALEMIA (7) Diabetes mellitus Assessment/Plan: -BGM ACHS -ISS -diabetic diet Code(s): E11.9 - TYPE 2 DIABETES MELLITUS WITHOUT COMPLICATIONS (8) PVD (peripheral vascular disease) Assessment/Plan: -Vascular on board -not candidate for CTA due to Cr level -CO2 angiogram--pending cardiology clearance, consult placed Code(s): I73.9 - PERIPHERAL VASCULAR DISEASE, UNSPECIFIED
[2018-08-13] MEDS: SODIUM CHLORIDE 1,000 ML IV SCH (13:07)
--- NOTE | 2018-08-13 14:30 | CON.CARD ---
Consult Consult Specialty:: Cardiology Reason for Consultation:: preop cardiac eval - History of Present Illness History of Present Illness: 68 y/o M w/ DM, HTN, CAD s/p CABG 2000, PCI 2015, Psoriasis, sent in for admission for nonhealing L heel and R great toe ulcers. He is planned to have CO2 Angiogram. Denies history of tobacco use, claudication, rest pain, prior vascular evaluation/intervention. Able to ambulate over a mile and at times jog. No Chest pain or dyspnea. Cardiac cath 2015 normal LV function. Normal LVEDP Severe 3 VD sp PCI with BANDAR to LAD and Diagonal. 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 Cardio/Vascular: Yes: CAD, HTN, Other (PVD) Renal/: Yes: Renal Inusuff Dermatology: Yes: Psoriasis - Alcohol/Substance Use Hx Alcohol Use: No - Smoking History Smoking history: Never smoked Have you smoked in the past 12 months: No - Social History ADL: Independent History of Recent Travel: No Home Medications - Allergies Allergies/Adverse Reactions: Allergies Allergy/AdvReac Type Severity Reaction Status Date / Time Fish Containing Products Allergy Unknown Unverified 08/12/18 17:13 egg Allergy Verified 08/12/18 17:12 fish derived Allergy Unverified 08/12/18 17:13 - Home Medications Home Medications: Ambulatory Orders Atorvastatin Calcium [Lipitor] 20 mg PO DAILY 08/11/18 Citalopram Hydrobromide [Celexa -] 20 mg PO DAILY 08/11/18 Insulin Lispro [Humalog] 0 unit SQ TID 08/11/18 Metoprolol Tartrate 25 mg PO DAILY 08/11/18 Review of Systems - Review of Systems Constitutional: reports: No Symptoms Eyes: reports: No Symptoms HENT: reports: No Symptoms Neck: reports: No Symptoms Cardiovascular: reports: No Symptoms Respiratory: reports: No Symptoms Gastrointestinal: reports: No Symptoms Genitourinary: reports: No Symptoms Vital Signs: Vital Signs Temperature 97.8 F 08/13/18 05:53 Pulse Rate 76 08/13/18 05:53 Respiratory Rate 20 08/13/18 05:53 Blood Pressure 155/80 08/13/18 05:53 O2 Sat by Pulse Oximetry (%) 100 08/12/18 21:00 Constitutional: Yes: Well Nourished, No Distress Eyes: Yes: Conjunctiva Clear, EOM Intact HENT: Yes: Atraumatic, Normocephalic Neck: Yes: Supple, Trachea Midline Respiratory: Yes: Regular, CTA Bilaterally Gastrointestinal: Yes: Normal Bowel Sounds Cardiovascular: Yes: Regular Rate and Rhythm JVD: No Carotid Bruit: No Heart Sounds: Yes: S1, S2 Murmur: No: Systolic Murmur, Diastolic Murmur Edema: No - Other Data Labs, Other Data: CBC, BMP 08/13/18 06:15 08/13/18 06:15 INR, PTT INR 1.08 (0.83-1.09) 08/11/18 20:00 NSR RBBB LAHB Problem List - Problems (1) Preop cardiovascular exam Code(s): Z01.810 - ENCOUNTER FOR PREPROCEDURAL CARDIOVASCULAR EXAMINATION (2) CAD (coronary artery disease) Code(s): I25.10 - ATHSCL HEART DISEASE OF [place] CORONARY ARTERY W/O ANG PCTRS Assessment/Plan 68 M with DM, leg wound. Hisotry of CAD with CABG and drug eluting stent in 2016. ECG with RBBB and LAHB. No heart failure, angina Normal baseline LV function. Patient is at low cardiac risk for angiogram. No further testing is suggested. Will see as needed.
--- NOTE | 2018-08-13 14:48 | PN ---
Progress Note (short form) - Note Progress Note: Renal follow up for JAMARCUS on CKD Pt seen and examined at the bedside no acute complaints tolerating oral diet, on IVF no sob, cp, abd pain, N/V/D making urine Vital Signs Temperature 97.8 F 08/13/18 05:53 Pulse Rate 76 08/13/18 05:53 Respiratory Rate 20 08/13/18 05:53 Blood Pressure 155/80 08/13/18 05:53 O2 Sat by Pulse Oximetry (%) 100 08/12/18 21:00 Intake & Output 08/10/18 08/11/18 08/12/18 08/13/18 23:59 23:59 23:59 23:59 Intake Total 500 700 200 Balance 500 700 200 Weight 98.52 kg 98.43 kg NAD RRR, No M/R CTA, no rales or wheeze soft NT/ND no LE edema, clubbing or cyanosis CBC, BMP 08/13/18 06:15 08/13/18 06:15 Current Medications Atorvastatin Calcium (Lipitor -) 20 mg PO DAILY [facility] Last Admin: 08/13/18 10:39 Dose: 20 mg Citalopram Hydrobromide (Celexa -) 20 mg PO DAILY [facility] Last Admin: 08/13/18 10:39 Dose: 20 mg Collagenase (Santyl -) 1 applic TP DAILY [facility]; Protocol Last Admin: 08/13/18 10:39 Dose: 1 applic Heparin Sodium (Porcine) (Heparin -) 5,000 unit SQ BID [facility] Last Admin: 08/13/18 10:39 Dose: 5,000 unit Ceftriaxone Sodium 1 gm/ (Dextrose) 50 mls @ 100 mls/hr IVPB DAILY [facility]; Protocol Last Admin: 08/13/18 10:39 Dose: 100 mls/hr Sodium Chloride (Normal Saline -) 1,000 mls @ 100 mls/hr IV ASDIR [facility] Stop: 08/13/18 16:44 Last Admin: 08/13/18 13:07 Dose: 100 mls/hr Insulin Aspart (Novolog Vial Sliding Scale -) 1 vial SQ ACHS [facility]; Protocol Last Admin: 08/13/18 12:15 Dose: 3 units Insulin Detemir (Levemir Vial) 15 units SQ AM [facility] Last Admin: 08/13/18 06:30 Dose: 15 units Metoprolol Tartrate (Lopressor -) 25 mg PO DAILY [facility] Last Admin: 08/13/18 10:39 Dose: 25 mg Sodium Polystyrene Sulfonate (Kayexalate -) 30 gm PO MoWeFr@1000 [facility] Last Admin: 08/13/18 10:37 Dose: 30 gm 68 year old gentleman with hx of CKD, chronic hyperkalemia (on kayexalate 3x weekly), DM, Hypertension, CAD s/p PCI/CABG, PVD presented with non-healing lower extremity ulcers and noted to have Cr of 1.8. #JAMARCUS on CKD #CKD stage 3 #Chronic Hyperkalemia #LE ulcers/PVD #DM #Hypertension #CAD Renal function improved with IVF continue fluids for additional 24 hours Trend renal function and electrolytes daily Harpal Luis DO
[2018-08-13] MEDS ORDERED: INSULIN (LEVEMIR) 100 UNITS/ML UNITS SQ ONE (21:05)
[2018-08-14] MEDS: INSULIN (LEVEMIR) 100 UNITS/ML UNITS SQ SCH (06:16)
[2018-08-14] MEDS: INSULIN SLIDING SCALE (NOVOLOG) 1 VIAL SQ SCH ×4 (06:17→21:38)
[2018-08-14] MEDS ORDERED: INSULIN (LEVEMIR) 100 UNITS/ML UNITS SQ ONE (06:35)
[2018-08-14 07:05] LABS: BASO % 0.9 % (0-2.0); EOS % 2.6 % (0-4.5); HEMATOCRIT 37.7 % (35.4-49); HEMOGLOBIN 12.7 GM/dL (11.7-16.9); MCH 31.5 pg (25.7-33.7); MCHC 33.7 g/dl (32.0-35.9); MEAN CELL VOLUME 93.5 fl (80-96); MEAN PLT VOLUME 8.6 fl (7.5-11.1); MONO % 7.2 % (3.8-10.2); NEUT % 65.3 % (42.8-82.8); PLATELET COUNT 192 K/MM3 (134-434); RBC 4.03 M/mm3 (4.00-5.60); RDW 13.4 % (11.9-15.9); WHITE BLOOD COUNT 6.9 K/mm3 (4.0-10.0)
[2018-08-14 07:41] LABS: ALK PHOS 89 U/L (45-117); ANION GAP 6 MMOL/L (8-16); BILIRUBIN,TOTAL 0.8 mg/dL (0.2-1); BLOOD UREA NITROGEN 23 mg/dL (7-18); CALCIUM 8.6 mg/dL (8.5-10.1); CHLORIDE 108 mmol/L (98-107); CO2 28 mmol/L (21-32); CREATININE 1.2 mg/dL (0.55-1.3); GLUCOSE,RANDOM 81 mg/dL (74-106); MAGNESIUM 2.2 mg/dL (1.8-2.4); PHOSPHOROUS 3.7 mg/dL (2.5-4.9); POTASSIUM 4.6 mmol/L (3.5-5.1); SGOT/AST 17 U/L (15-37); SGPT/ALT 34 U/L (13-61); SODIUM 142 mmol/L (136-145); TOT PROT 5.8 g/dl (6.4-8.2)
[2018-08-14] MEDS ORDERED: DEXTROSE 5%-WATER - 50 ML IVPB ONE (08:34)
[2018-08-14] MEDS ORDERED: cefTRIAXone SODIUM 1 GM VIAL ONE (08:34)
[2018-08-14] MEDS ORDERED: AMMONIUM LACTATE 12% LOTION 225 GM BOTTLE TP PRN (09:00)
--- NOTE | 2018-08-14 09:04 | PN ---
Progress Note, Physician Chief Complaint: AWAKE ALERT NAD EVENTS AND NOTES REVIEWED - Current Medication List Current Medications: Active Medications Atorvastatin Calcium (Lipitor -) 20 mg PO DAILY [facility] Last Admin: 08/13/18 10:39 Dose: 20 mg Citalopram Hydrobromide (Celexa -) 20 mg PO DAILY [facility] Last Admin: 08/13/18 10:39 Dose: 20 mg Collagenase (Santyl -) 1 applic TP DAILY [facility]; Protocol Last Admin: 08/13/18 10:39 Dose: 1 applic Heparin Sodium (Porcine) (Heparin -) 5,000 unit SQ BID [facility] Last Admin: 08/13/18 21:33 Dose: 5,000 unit Ceftriaxone Sodium 1 gm/ (Dextrose) 50 mls @ 100 mls/hr IVPB DAILY [facility]; Protocol Last Admin: 08/13/18 10:39 Dose: 100 mls/hr Insulin Aspart (Novolog Vial Sliding Scale -) 1 vial SQ ACHS [facility]; Protocol Last Admin: 08/14/18 06:17 Dose: Not Given Insulin Detemir (Levemir Vial) 15 units SQ AM [facility] Last Admin: 08/14/18 06:16 Dose: Not Given Metoprolol Tartrate (Lopressor -) 25 mg PO DAILY [facility] Last Admin: 08/13/18 10:39 Dose: 25 mg Sodium Polystyrene Sulfonate (Kayexalate -) 30 gm PO MoWeFr@1000 [facility] Last Admin: 08/13/18 10:37 Dose: 30 gm - Objective Vital Signs: Vital Signs Temperature 98 F 08/14/18 06:00 Pulse Rate 68 08/14/18 06:00 Respiratory Rate 20 08/14/18 06:00 Blood Pressure 135/68 08/14/18 06:00 O2 Sat by Pulse Oximetry (%) 100 08/13/18 21:00 Constitutional: Yes: No Distress Eyes: Yes: WNL HENT: Yes: WNL Neck: Yes: WNL Cardiovascular: Yes: Regular Rate and Rhythm Respiratory: Yes: WNL Gastrointestinal: Yes: WNL Genitourinary: Yes: WNL Musculoskeletal: Yes: Other Extremities: Yes: Other Edema: No Peripheral Pulses WNL: Yes Integumentary: Yes: Pressure Ulcer, Rash Wound/Incision: Yes: Dressing Dry and Intact, Reddened, Excoriated (GENERALIZED RASH TO BODY WITH PSORIATIC PLAQUES NO BLEEDING) Neurological: Yes: Pre-Existing Deficit ...Motor Strength: LLE, RLE Psychiatric: Yes: Other Labs: CBC, BMP 08/14/18 06:00 08/14/18 06:00 INR, PTT INR 1.08 (0.83-1.09) 08/11/18 20:00 Problem List - Problems (1) CAD (coronary artery disease) Code(s): I25.10 - ATHSCL HEART DISEASE OF [place] CORONARY ARTERY W/O ANG PCTRS (2) CKD (chronic kidney disease) Code(s): N18.9 - CHRONIC KIDNEY DISEASE, UNSPECIFIED (3) Cellulitis Code(s): L03.90 - CELLULITIS, UNSPECIFIED Qualifiers: Site of cellulitis: extremity Site of cellulitis of extremity: lower extremity Laterality: left Qualified Code(s): L03.116 - Cellulitis of left lower limb (4) Dementia Code(s): F03.90 - UNSPECIFIED DEMENTIA WITHOUT BEHAVIORAL DISTURBANCE (5) Diabetes mellitus Code(s): E11.9 - TYPE 2 DIABETES MELLITUS WITHOUT COMPLICATIONS (6) Diabetic foot Code(s): E11.8 - TYPE 2 DIABETES MELLITUS WITH UNSPECIFIED COMPLICATIONS (7) HTN (hypertension) Code(s): I10 - ESSENTIAL (PRIMARY) HYPERTENSION (8) PVD (peripheral vascular disease) Code(s): I73.9 - PERIPHERAL VASCULAR DISEASE, UNSPECIFIED (9) Psoriasis Code(s): L40.9 - PSORIASIS, UNSPECIFIED Assessment/Plan IV ABX CONTINUE WOUND CARE DIABETIC FOOT START AQUAPHOR/LAC-HYDRIN BID TO AFFECTED PSORIATIC PLAQUES PT EVAL BRAIN MRI PENDING RESULTS DVT PROPHYLAXIS
[2018-08-14] MEDS: ATORVASTATIN CA 20 MG TABLET (FP) PO SCH (09:25)
[2018-08-14] MEDS: CEFTRIAXONE 1 GM in DEXTROSE 5%-WATER - 50 ML IVPB SCH (09:27)
[2018-08-14] MEDS: CITALOPRAM HYDROBROMIDE 20 MG TABLET (FP) PO SCH (09:27)
[2018-08-14] MEDS: HEPARIN NA (PORCINE) 5,000 UNITS/ML 1ML VIAL SQ SCH ×2 (09:27→21:38)
[2018-08-14] MEDS: METOPROLOL TARTRATE 25 MG TABLET (FP) PO SCH (09:34)
[2018-08-14] MEDS: COLLAGENASE CLOSTRIDIUM HIST. 30 GRAMS TUBE TP SCH (09:34)
[2018-08-14] MEDS: MINERAL OIL/PET HY-PHL TOPICAL OINTMENT 454 GM JAR TP SCH ×2 (09:35→21:38)
--- NOTE | 2018-08-14 10:54 | PN ---
Progress Note, Physician History of Present Illness: stable no new issues ad a brain mri done - Current Medication List Current Medications: Active Medications Atorvastatin Calcium (Lipitor -) 20 mg PO DAILY [facility] Last Admin: 08/14/18 09:25 Dose: 20 mg Citalopram Hydrobromide (Celexa -) 20 mg PO DAILY [facility] Last Admin: 08/14/18 09:27 Dose: 20 mg Collagenase (Santyl -) 1 applic TP DAILY [facility]; Protocol Last Admin: 08/14/18 09:34 Dose: 1 applic Emollient Ointment (Aquaphor -) 1 applic TP BID [facility] Last Admin: 08/14/18 09:35 Dose: 1 applic Heparin Sodium (Porcine) (Heparin -) 5,000 unit SQ BID [facility] Last Admin: 08/14/18 09:27 Dose: 5,000 unit Ceftriaxone Sodium 1 gm/ (Dextrose) 50 mls @ 100 mls/hr IVPB DAILY [facility]; Protocol Last Admin: 08/14/18 09:27 Dose: 100 mls/hr Insulin Aspart (Novolog Vial Sliding Scale -) 1 vial SQ ACHS [facility]; Protocol Last Admin: 08/14/18 06:17 Dose: Not Given Insulin Detemir (Levemir Vial) 15 units SQ AM [facility] Last Admin: 08/14/18 06:16 Dose: Not Given Lactic Acid (Lac-Hydrin 12) 1 applic TP Q12H PRN PRN Reason: DRY SKIN Last Admin: 08/14/18 09:35 Dose: 1 applic Metoprolol Tartrate (Lopressor -) 25 mg PO DAILY [facility] Last Admin: 08/14/18 09:34 Dose: 25 mg Sodium Polystyrene Sulfonate (Kayexalate -) 30 gm PO MoWeFr@1000 [facility] Last Admin: 08/13/18 10:37 Dose: 30 gm - Objective Vital Signs: Vital Signs Temperature 98 F 08/14/18 06:00 Pulse Rate 68 08/14/18 06:00 Respiratory Rate 20 08/14/18 06:00 Blood Pressure 135/68 08/14/18 06:00 O2 Sat by Pulse Oximetry (%) 100 08/13/18 21:00 Constitutional: Yes: No Distress, Calm Cardiovascular: Yes: Regular Rate and Rhythm Respiratory: Yes: Regular, CTA Bilaterally Gastrointestinal: Yes: Normal Bowel Sounds, Soft Musculoskeletal: Yes: WNL Extremities: Yes: WNL Neurological: Yes: Alert Psychiatric: Yes: Alert Labs: CBC, BMP 08/14/18 06:00 08/14/18 06:00 INR, PTT INR 1.08 (0.83-1.09) 08/11/18 20:00 Assessment/Plan patient with psoriasis diabetic wounds with mild cellulitis of the great rt toe and swelling of the left heel swelling of left heel r/o osteo of rt toe psoriasis plan continue ceftriaxone will see d/w podiatry wound care await for mri result
--- NOTE | 2018-08-14 11:08 | PN ---
Progress Note (short form) - Note Progress Note: Renal follow up for JAMARCUS on CKD Pt seen and examined at the bedside no acute complaints off IVF, tolerating oral intake no sob, cp, abd pain, N/V/D making urine Vital Signs Temperature 98 F 08/14/18 06:00 Pulse Rate 68 08/14/18 06:00 Respiratory Rate 20 08/14/18 06:00 Blood Pressure 135/68 08/14/18 06:00 O2 Sat by Pulse Oximetry (%) 100 08/13/18 21:00 Intake & Output 08/11/18 08/12/18 08/13/18 08/14/18 23:59 23:59 23:59 23:59 Intake Total 922 973 5885 140 Balance 882 891 4187 140 Weight 98.52 kg 98.43 kg NAD RRR, No M/R CTA, no rales or wheeze soft NT/ND no LE edema, clubbing or cyanosis CBC, BMP 08/14/18 06:00 08/14/18 06:00 Current Medications Atorvastatin Calcium (Lipitor -) 20 mg PO DAILY [facility] Last Admin: 08/14/18 09:25 Dose: 20 mg Citalopram Hydrobromide (Celexa -) 20 mg PO DAILY [facility] Last Admin: 08/14/18 09:27 Dose: 20 mg Collagenase (Santyl -) 1 applic TP DAILY [facility]; Protocol Last Admin: 08/14/18 09:34 Dose: 1 applic Emollient Ointment (Aquaphor -) 1 applic TP BID [facility] Last Admin: 08/14/18 09:35 Dose: 1 applic Heparin Sodium (Porcine) (Heparin -) 5,000 unit SQ BID [facility] Last Admin: 08/14/18 09:27 Dose: 5,000 unit Ceftriaxone Sodium 1 gm/ (Dextrose) 50 mls @ 100 mls/hr IVPB DAILY [facility]; Protocol Last Admin: 08/14/18 09:27 Dose: 100 mls/hr Insulin Aspart (Novolog Vial Sliding Scale -) 1 vial SQ ACHS [facility]; Protocol Last Admin: 08/14/18 06:17 Dose: Not Given Insulin Detemir (Levemir Vial) 15 units SQ AM [facility] Last Admin: 08/14/18 06:16 Dose: Not Given Lactic Acid (Lac-Hydrin 12) 1 applic TP Q12H PRN PRN Reason: DRY SKIN Last Admin: 08/14/18 09:35 Dose: 1 applic Metoprolol Tartrate (Lopressor -) 25 mg PO DAILY [facility] Last Admin: 08/14/18 09:34 Dose: 25 mg Sodium Polystyrene Sulfonate (Kayexalate -) 30 gm PO MoWeFr@1000 [facility] Last Admin: 08/13/18 10:37 Dose: 30 gm 68 year old gentleman with hx of CKD, chronic hyperkalemia (on kayexalate 3x weekly), DM, Hypertension, CAD s/p PCI/CABG, PVD presented with non-healing lower extremity ulcers and noted to have Cr of 1.8. #JAMARCUS on CKD #CKD stage 3 #Chronic Hyperkalemia #LE ulcers/PVD #DM #Hypertension #CAD Renal function improved and stable off IVR Trend renal function and electrolytes daily continue kayexalate 3x weekly continue antibiotics as per primary team Harpal Luis DO
--- NOTE | 2018-08-14 11:36 | PN ---
Progress Note (short form) - Note Progress Note: FUV b/l feet. vss mri inconclusive for om however in correlation with wounds and location of wounds and chronicity would treat as om om Intervention as per Vascular. IVABX as per ID. Follow up wcc 1x week. Will discuss with ID. [facility] close to his home in [place]. Will follow till dc.
[2018-08-14] MEDS ORDERED: INSULIN (NOVOLOG) ASPART 100 UNITS/ML 10ML VIAL ONE (12:55)
--- NOTE | 2018-08-14 21:23 | PN ---
Progress Note, Physician Chief Complaint: sitting in chair comfortable - Current Medication List Current Medications: Active Medications Atorvastatin Calcium (Lipitor -) 20 mg PO DAILY [facility] Last Admin: 08/14/18 09:25 Dose: 20 mg Citalopram Hydrobromide (Celexa -) 20 mg PO DAILY [facility] Last Admin: 08/14/18 09:27 Dose: 20 mg Collagenase (Santyl -) 1 applic TP DAILY [facility]; Protocol Last Admin: 08/14/18 09:34 Dose: 1 applic Emollient Ointment (Aquaphor -) 1 applic TP BID [facility] Last Admin: 08/14/18 09:35 Dose: 1 applic Heparin Sodium (Porcine) (Heparin -) 5,000 unit SQ BID [facility] Last Admin: 08/14/18 09:27 Dose: 5,000 unit Ceftriaxone Sodium 1 gm/ (Dextrose) 50 mls @ 100 mls/hr IVPB DAILY [facility]; Protocol Last Admin: 08/14/18 09:27 Dose: 100 mls/hr Insulin Aspart (Novolog Vial Sliding Scale -) 1 vial SQ ACHS [facility]; Protocol Last Admin: 08/14/18 17:21 Dose: Not Given Insulin Detemir (Levemir Vial) 15 units SQ AM [facility] Last Admin: 08/14/18 06:16 Dose: Not Given Lactic Acid (Lac-Hydrin 12) 1 applic TP Q12H PRN PRN Reason: DRY SKIN Last Admin: 08/14/18 09:35 Dose: 1 applic Metoprolol Tartrate (Lopressor -) 25 mg PO DAILY [facility] Last Admin: 08/14/18 09:34 Dose: 25 mg Sodium Polystyrene Sulfonate (Kayexalate -) 30 gm PO MoWeFr@1000 [facility] Last Admin: 08/13/18 10:37 Dose: 30 gm - Objective Vital Signs: Vital Signs Temperature 98.0 F 08/14/18 19:08 Pulse Rate 71 08/14/18 19:08 Respiratory Rate 20 08/14/18 19:08 Blood Pressure 128/56 L 08/14/18 19:08 O2 Sat by Pulse Oximetry (%) 100 08/14/18 09:00 Constitutional: Yes: Calm Eyes: Yes: EOM Intact HENT: Yes: Normocephalic Neck: Yes: Trachea Midline Cardiovascular: Yes: Regular Rate and Rhythm Respiratory: Yes: CTA Bilaterally Gastrointestinal: Yes: Normal Bowel Sounds ...Rectal Exam: Yes: Deferred Genitourinary: Yes: WNL Musculoskeletal: Yes: WNL Extremities: Yes: WNL Edema: No Peripheral Pulses WNL: Yes Wound/Incision: Yes: Clean/Dry Neurological: Yes: Alert, Confusion (mild) Labs: CBC, BMP 08/14/18 06:00 08/14/18 06:00 INR, PTT INR 1.08 (0.83-1.09) 08/11/18 20:00 Problem List - Problems (1) CKD (chronic kidney disease) Code(s): N18.9 - CHRONIC KIDNEY DISEASE, UNSPECIFIED (2) Cellulitis Code(s): L03.90 - CELLULITIS, UNSPECIFIED Qualifiers: Site of cellulitis: extremity Site of cellulitis of extremity: lower extremity Laterality: left Qualified Code(s): L03.116 - Cellulitis of left lower limb (3) Dementia Code(s): F03.90 - UNSPECIFIED DEMENTIA WITHOUT BEHAVIORAL DISTURBANCE (4) Diabetes mellitus Code(s): E11.9 - TYPE 2 DIABETES MELLITUS WITHOUT COMPLICATIONS (5) Diabetic foot Code(s): E11.8 - TYPE 2 DIABETES MELLITUS WITH UNSPECIFIED COMPLICATIONS (6) HTN (hypertension) Code(s): I10 - ESSENTIAL (PRIMARY) HYPERTENSION (7) Hyperkalemia Code(s): E87.5 - HYPERKALEMIA Assessment/Plan Current Active Problems CAD (coronary artery disease) (Acute) CKD (chronic kidney disease) (Acute) Cellulitis (Acute) Dementia (Acute) Diabetes mellitus (Acute) Diabetic foot (Acute) HTN (hypertension) (Acute) Hyperkalemia (Acute) Non-healing wound (Acute) PVD (peripheral vascular disease) (Acute) Psoriasis (Acute) Abnormal Lab Results Abnormal Lab Results 08/14/18 06:00 Chloride 108 H Anion Gap 6 L BUN 23 H Total Protein 5.8 L Albumin 3.0 L plan: bgm qid novolog levemir dose as titration needed wound care location to be decided
[2018-08-15] MEDS: INSULIN SLIDING SCALE (NOVOLOG) 1 VIAL SQ SCH ×4 (06:03→21:57)
[2018-08-15] MEDS: INSULIN (LEVEMIR) 100 UNITS/ML UNITS SQ SCH (06:04)
[2018-08-15 07:44] LABS: BLOOD UREA NITROGEN 22 mg/dL (7-18); CHLORIDE 108 mmol/L (98-107); CO2 27 mmol/L (21-32); CREATININE 1.2 mg/dL (0.55-1.3); GLUCOSE,RANDOM 106 mg/dL (74-106); SODIUM 141 mmol/L (136-145)
[2018-08-15 07:45] LABS: ANION GAP 6 MMOL/L (8-16); CALCIUM 8.4 mg/dL (8.5-10.1); MAGNESIUM 2.3 mg/dL (1.8-2.4); PHOSPHOROUS 3.3 mg/dL (2.5-4.9)
[2018-08-15] MEDS ORDERED: PT OWN MED DRAWER 7, Y5N ONE (09:15)
[2018-08-15] MEDS ORDERED: DEXTROSE 5%-WATER - 50 ML IVPB ONE (09:15)
[2018-08-15] MEDS ORDERED: cefTRIAXone SODIUM 1 GM VIAL ONE (09:15)
[2018-08-15] MEDS: CEFTRIAXONE 1 GM in DEXTROSE 5%-WATER - 50 ML IVPB SCH (09:33)
[2018-08-15] MEDS: CITALOPRAM HYDROBROMIDE 20 MG TABLET (FP) PO SCH (09:33)
[2018-08-15] MEDS: HEPARIN NA (PORCINE) 5,000 UNITS/ML 1ML VIAL SQ SCH ×2 (09:33→21:57)
[2018-08-15] MEDS: METOPROLOL TARTRATE 25 MG TABLET (FP) PO SCH (09:33)
[2018-08-15] MEDS: ATORVASTATIN CA 20 MG TABLET (FP) PO SCH (09:33)
[2018-08-15] MEDS: MINERAL OIL/PET HY-PHL TOPICAL OINTMENT 454 GM JAR TP SCH ×2 (09:34→21:57)
--- NOTE | 2018-08-15 10:34 | PN ---
Progress Note, Physician Chief Complaint: AWAKE ALERT NAD - Current Medication List Current Medications: Active Medications Atorvastatin Calcium (Lipitor -) 20 mg PO DAILY [facility] Last Admin: 08/15/18 09:33 Dose: 20 mg Citalopram Hydrobromide (Celexa -) 20 mg PO DAILY [facility] Last Admin: 08/15/18 09:33 Dose: 20 mg Collagenase (Santyl -) 1 applic TP DAILY [facility]; Protocol Last Admin: 08/14/18 09:34 Dose: 1 applic Emollient Ointment (Aquaphor -) 1 applic TP BID [facility] Last Admin: 08/15/18 09:34 Dose: 1 applic Heparin Sodium (Porcine) (Heparin -) 5,000 unit SQ BID [facility] Last Admin: 08/15/18 09:33 Dose: 5,000 unit Ceftriaxone Sodium 1 gm/ (Dextrose) 50 mls @ 100 mls/hr IVPB DAILY [facility]; Protocol Last Admin: 08/15/18 09:33 Dose: 100 mls/hr Insulin Aspart (Novolog Vial Sliding Scale -) 1 vial SQ ACHS [facility]; Protocol Last Admin: 08/15/18 06:03 Dose: Not Given Insulin Detemir (Levemir Vial) 15 units SQ AM [facility] Last Admin: 08/15/18 06:04 Dose: 15 units Lactic Acid (Lac-Hydrin 12) 1 applic TP Q12H PRN PRN Reason: DRY SKIN Last Admin: 08/14/18 09:35 Dose: 1 applic Metoprolol Tartrate (Lopressor -) 25 mg PO DAILY [facility] Last Admin: 08/15/18 09:33 Dose: 25 mg Sodium Polystyrene Sulfonate (Kayexalate -) 30 gm PO MoWeFr@1000 [facility] Last Admin: 08/13/18 10:37 Dose: 30 gm - Objective Vital Signs: Vital Signs Temperature 98.2 F 08/15/18 10:00 Pulse Rate 71 08/15/18 10:00 Respiratory Rate 20 08/15/18 10:00 Blood Pressure 115/69 08/15/18 10:00 O2 Sat by Pulse Oximetry (%) 100 08/14/18 21:00 Constitutional: Yes: No Distress Cardiovascular: Yes: Regular Rate and Rhythm Respiratory: Yes: WNL Gastrointestinal: Yes: WNL Genitourinary: Yes: WNL Musculoskeletal: Yes: Muscle Pain Edema: No Peripheral Pulses WNL: Yes Integumentary: Yes: Pressure Ulcer, Rash, Other (PSORIATIC) Wound/Incision: Yes: Dressing Dry and Intact, Unapproximated Neurological: Yes: Tremors ...Motor Strength: LLE, RLE Psychiatric: Yes: Other Labs: CBC, BMP 08/14/18 06:00 08/15/18 06:00 INR, PTT INR 1.08 (0.83-1.09) 08/11/18 20:00 Problem List - Problems (1) CAD (coronary artery disease) Code(s): I25.10 - ATHSCL HEART DISEASE OF [place] CORONARY ARTERY W/O ANG PCTRS (2) CKD (chronic kidney disease) Code(s): N18.9 - CHRONIC KIDNEY DISEASE, UNSPECIFIED (3) Cellulitis Code(s): L03.90 - CELLULITIS, UNSPECIFIED Qualifiers: Site of cellulitis: extremity Site of cellulitis of extremity: lower extremity Laterality: left Qualified Code(s): L03.116 - Cellulitis of left lower limb (4) Dementia Code(s): F03.90 - UNSPECIFIED DEMENTIA WITHOUT BEHAVIORAL DISTURBANCE (5) Diabetes mellitus Code(s): E11.9 - TYPE 2 DIABETES MELLITUS WITHOUT COMPLICATIONS (6) Diabetic foot Code(s): E11.8 - TYPE 2 DIABETES MELLITUS WITH UNSPECIFIED COMPLICATIONS (7) HTN (hypertension) Code(s): I10 - ESSENTIAL (PRIMARY) HYPERTENSION (8) PVD (peripheral vascular disease) Code(s): I73.9 - PERIPHERAL VASCULAR DISEASE, UNSPECIFIED (9) Psoriasis Code(s): L40.9 - PSORIASIS, UNSPECIFIED Assessment/Plan IV ABX CONTINUE WOUND CARE DIABETIC FOOT VASC SX WORKUP START AQUAPHOR/LAC-HYDRIN BID TO AFFECTED PSORIATIC PLAQUES PT EVAL BRAIN MRI PENDING RESULTS [place] TREMOR DVT PROPHYLAXIS
[2018-08-15] MEDS: COLLAGENASE CLOSTRIDIUM HIST. 30 GRAMS TUBE TP SCH (10:40)
--- NOTE | 2018-08-15 12:11 | PN ---
Progress Note, Physician History of Present Illness: stable doing well no new issues - Current Medication List Current Medications: Active Medications Atorvastatin Calcium (Lipitor -) 20 mg PO DAILY [facility] Last Admin: 08/15/18 09:33 Dose: 20 mg Citalopram Hydrobromide (Celexa -) 20 mg PO DAILY [facility] Last Admin: 08/15/18 09:33 Dose: 20 mg Collagenase (Santyl -) 1 applic TP DAILY [facility]; Protocol Last Admin: 08/15/18 10:40 Dose: 1 applic Emollient Ointment (Aquaphor -) 1 applic TP BID [facility] Last Admin: 08/15/18 09:34 Dose: 1 applic Heparin Sodium (Porcine) (Heparin -) 5,000 unit SQ BID [facility] Last Admin: 08/15/18 09:33 Dose: 5,000 unit Ceftriaxone Sodium 1 gm/ (Dextrose) 50 mls @ 100 mls/hr IVPB DAILY [facility]; Protocol Last Admin: 08/15/18 09:33 Dose: 100 mls/hr Insulin Aspart (Novolog Vial Sliding Scale -) 1 vial SQ ACHS [facility]; Protocol Last Admin: 08/15/18 11:54 Dose: Not Given Insulin Detemir (Levemir Vial) 15 units SQ AM [facility] Last Admin: 08/15/18 06:04 Dose: 15 units Lactic Acid (Lac-Hydrin 12) 1 applic TP Q12H PRN PRN Reason: DRY SKIN Last Admin: 08/14/18 09:35 Dose: 1 applic Metoprolol Tartrate (Lopressor -) 25 mg PO DAILY [facility] Last Admin: 08/15/18 09:33 Dose: 25 mg Sodium Polystyrene Sulfonate (Kayexalate -) 30 gm PO MoWeFr@1000 [facility] Last Admin: 08/13/18 10:37 Dose: 30 gm - Objective Vital Signs: Vital Signs Temperature 98.2 F 08/15/18 10:00 Pulse Rate 71 08/15/18 10:00 Respiratory Rate 20 08/15/18 10:00 Blood Pressure 115/69 08/15/18 10:00 O2 Sat by Pulse Oximetry (%) 100 08/15/18 09:00 Constitutional: Yes: No Distress, Calm Cardiovascular: Yes: S1, S2 Respiratory: Yes: Regular, CTA Bilaterally Gastrointestinal: Yes: Normal Bowel Sounds, Soft Musculoskeletal: Yes: WNL Extremities: Yes: Other Wound/Incision: Yes: Dressing Dry and Intact Neurological: Yes: Alert, Oriented Psychiatric: Yes: Alert, Oriented Labs: CBC, BMP 08/14/18 06:00 08/15/18 06:00 INR, PTT INR 1.08 (0.83-1.09) 08/11/18 20:00 Assessment/Plan patient with psoriasis diabetic wounds with mild cellulitis of the great rt toe and swelling of the left heel swelling of left heel r/o osteo of rt toe psoriasis plan continue ceftriaxone vascular to see the patient will need abx for a total of 6 weeks wound care rest as per the team
[2018-08-16] MEDS: INSULIN SLIDING SCALE (NOVOLOG) 1 VIAL SQ SCH ×4 (06:02→22:14)
[2018-08-16] MEDS: INSULIN (LEVEMIR) 100 UNITS/ML UNITS SQ SCH (06:02)
[2018-08-16] MEDS ORDERED: cefTRIAXone SODIUM 1 GM VIAL ONE (09:06)
[2018-08-16] MEDS ORDERED: DEXTROSE 5%-WATER - 50 ML IVPB ONE (09:06)
--- NOTE | 2018-08-16 09:10 | PN ---
Progress Note (short form) - Note Progress Note: VAscular surgery Pt seen and examined. Will do right lower ext angiogram yana . NPO past midnight Jay Birmingham DO
[2018-08-16] MEDS: SODIUM POLYSTYRENE SULFONATE 15 GM/60 ML BOTTLE PO SCH (09:15)
[2018-08-16] MEDS: MINERAL OIL/PET HY-PHL TOPICAL OINTMENT 454 GM JAR TP SCH ×2 (09:16→22:14)
[2018-08-16] MEDS: METOPROLOL TARTRATE 25 MG TABLET (FP) PO SCH (09:16)
[2018-08-16] MEDS: CEFTRIAXONE 1 GM in DEXTROSE 5%-WATER - 50 ML IVPB SCH (09:16)
[2018-08-16] MEDS: ATORVASTATIN CA 20 MG TABLET (FP) PO SCH (09:16)
[2018-08-16] MEDS: CITALOPRAM HYDROBROMIDE 20 MG TABLET (FP) PO SCH (09:16)
[2018-08-16] MEDS: HEPARIN NA (PORCINE) 5,000 UNITS/ML 1ML VIAL SQ SCH ×2 (09:16→22:14)
[2018-08-16] MEDS: COLLAGENASE CLOSTRIDIUM HIST. 30 GRAMS TUBE TP SCH (09:17)
--- NOTE | 2018-08-16 10:39 | PN ---
Progress Note (short form) - Note Progress Note: NEUROLOGY PROGRESS: Events reviewed and discussed with LOLIS Alberto and JHONATAN Pak. Seen by vascular pending angiogram of right lower extremity. On ceftriaxone for diabetic foot ulcer. No current complaints at this time. Brain MRI (C-): mod atrophy. Scattered microvascular changes in natan, cerebellum , periventricular regions. Intracranial vessels well visualized and patent. B12= 771 mg% TSH= 1.30 RPR non-reactive A1c= 11.2 DAVID: Obese. Diffuse psoriatic changes NEURO: Awake, alert, cooperative. [facility]. July,. TRUMP. Poor reversals. 0/3 recall @ 2 min. + glabella, grasps CN: Rhythmic jaw tremor Motor: Intermittent, rhythmic rest tremor B/L. + Cogwheel rigidity. Normal strength. Sl decreased MARLINE's. Brisk reflexes except AJ's. Plantars silent. Sensory: Reduced vibration to both ankles. Romberg - Gait: Erect posture, shortened strides. No festination. 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 SUGGEST: Adjust modifiable risk factors for stroke including obesity, HTN, HLD, DM Order carotid duplex doppler PT eval for gait training. Thank you very much, Barrington Garcia MD
--- NOTE | 2018-08-16 10:42 | PN ---
Progress Note, Physician Chief Complaint: Foot Wound CKD DM History of Present Illness: Previous notes and events reviewed awake and alert NAD denies chest pain or SOB RLE angiogram in the AM--cardiology clearance states patient is low cardiac risk for angiogram - Current Medication List Current Medications: Active Medications Atorvastatin Calcium (Lipitor -) 20 mg PO DAILY [facility] Last Admin: 08/16/18 09:16 Dose: 20 mg Citalopram Hydrobromide (Celexa -) 20 mg PO DAILY [facility] Last Admin: 08/16/18 09:16 Dose: 20 mg Collagenase (Santyl -) 1 applic TP DAILY [facility]; Protocol Last Admin: 08/16/18 09:17 Dose: 1 applic Emollient Ointment (Aquaphor -) 1 applic TP BID [facility] Last Admin: 08/16/18 09:16 Dose: 1 applic Heparin Sodium (Porcine) (Heparin -) 5,000 unit SQ BID [facility] Last Admin: 08/16/18 09:16 Dose: 5,000 unit Ceftriaxone Sodium 1 gm/ (Dextrose) 50 mls @ 100 mls/hr IVPB DAILY [facility]; Protocol Last Admin: 08/16/18 09:16 Dose: 100 mls/hr Insulin Aspart (Novolog Vial Sliding Scale -) 1 vial SQ [facility]; Protocol Last Admin: 08/16/18 06:02 Dose: Not Given Insulin Detemir (Levemir Vial) 15 units SQ AM [facility] Last Admin: 08/16/18 06:02 Dose: 15 units Lactic Acid (Lac-Hydrin 12) 1 applic TP Q12H PRN PRN Reason: DRY SKIN Last Admin: 08/14/18 09:35 Dose: 1 applic Metoprolol Tartrate (Lopressor -) 25 mg PO DAILY [facility] Last Admin: 08/16/18 09:16 Dose: 25 mg Sodium Polystyrene Sulfonate (Kayexalate -) 30 gm PO MoWeFr@1000 [facility] Last Admin: 08/16/18 09:15 Dose: 30 gm - Objective Vital Signs: Vital Signs Temperature 97.8 F 08/16/18 10:00 Pulse Rate 70 08/16/18 10:00 Respiratory Rate 20 08/16/18 10:00 Blood Pressure 126/77 08/16/18 10:00 O2 Sat by Pulse Oximetry (%) 100 08/16/18 09:00 Constitutional: Yes: Well Nourished, No Distress, Calm Eyes: Yes: Conjunctiva Clear HENT: Yes: Atraumatic Cardiovascular: Yes: Regular Rate and Rhythm Respiratory: Yes: Regular, CTA Bilaterally Gastrointestinal: Yes: Normal Bowel Sounds, Soft Genitourinary: Yes: Incontinence Musculoskeletal: Yes: Muscle Weakness Extremities: Yes: WNL Edema: No Integumentary: Yes: Rash (generalized) Wound/Incision: Yes: Dressing Dry and Intact (R great toe) Neurological: Yes: Alert, Pre-Existing Deficit Psychiatric: Yes: Alert Labs: CBC, BMP 08/14/18 06:00 08/15/18 06:00 INR, PTT INR 1.08 (0.83-1.09) 08/11/18 20:00 Microbiology 08/11/18 20:00 Blood - Peripheral Venous Blood Culture - Preliminary NO GROWTH OBTAINED AFTER 96 HOURS, INCUBATION TO CONTINUE FOR 1 DAYS. 08/11/18 20:00 Blood - Peripheral Venous Blood Culture - Preliminary NO GROWTH OBTAINED AFTER 96 HOURS, INCUBATION TO CONTINUE FOR 1 DAYS. - ....Imaging MRI: Report Reviewed Problem List - Problems (1) CAD (coronary artery disease) Assessment/Plan: -continue with Atorvastatin Code(s): I25.10 - ATHSCL HEART DISEASE OF [place] CORONARY ARTERY W/O ANG PCTRS (2) CKD (chronic kidney disease) Assessment/Plan: -Renal on board -Renal US shows no hydronephrosis, no discrete mass, lesion, or calculus -BUN/Cr 22/1.1 -avoid nephrotoxins, NSAIDs Code(s): N18.9 - CHRONIC KIDNEY DISEASE, UNSPECIFIED (3) Dementia Assessment/Plan: -neurology on board -Brain MRI shows generalized volume loss with multiple foci of a small vessel infarction in the periventricular white matter, brainstem and a few in the left cerebellas hemisphere, no mass lesion, acute infarction or hemorrhage Code(s): F03.90 - UNSPECIFIED DEMENTIA WITHOUT BEHAVIORAL DISTURBANCE (4) HTN (hypertension) Assessment/Plan: -continue Metoprolol -low Na diet Code(s): I10 - ESSENTIAL (PRIMARY) HYPERTENSION (5) Non-healing wound Assessment/Plan: -Podiatry and ID on board -IV Ceftriaxone -no leukocytosis -afebrile -MRI of B/L LE performed and podiatry recommendation appreciated Code(s): [id number] - (6) Hyperkalemia Code(s): E87.5 - HYPERKALEMIA (7) Diabetes mellitus Assessment/Plan: -BGM ACHS -ISS + Levemir -diabetic diet -HgA1c 11.2% Code(s): E11.9 - TYPE 2 DIABETES MELLITUS WITHOUT COMPLICATIONS (8) PVD (peripheral vascular disease) Assessment/Plan: -Vascular on board -scheduled for RLE Angiogram in AM--NPO after midnight Code(s): I73.9 - PERIPHERAL VASCULAR DISEASE, UNSPECIFIED Assessment/Plan see problem list dvt ppx
--- NOTE | 2018-08-16 12:08 | PN ---
Progress Note, Physician History of Present Illness: stable no new issues - Current Medication List Current Medications: Active Medications Atorvastatin Calcium (Lipitor -) 20 mg PO DAILY [facility] Last Admin: 08/16/18 09:16 Dose: 20 mg Citalopram Hydrobromide (Celexa -) 20 mg PO DAILY [facility] Last Admin: 08/16/18 09:16 Dose: 20 mg Collagenase (Santyl -) 1 applic TP DAILY [facility]; Protocol Last Admin: 08/16/18 09:17 Dose: 1 applic Emollient Ointment (Aquaphor -) 1 applic TP BID [facility] Last Admin: 08/16/18 09:16 Dose: 1 applic Heparin Sodium (Porcine) (Heparin -) 5,000 unit SQ BID [facility] Last Admin: 08/16/18 09:16 Dose: 5,000 unit Ceftriaxone Sodium 1 gm/ (Dextrose) 50 mls @ 100 mls/hr IVPB DAILY [facility]; Protocol Last Admin: 08/16/18 09:16 Dose: 100 mls/hr Insulin Aspart (Novolog Vial Sliding Scale -) 1 vial SQ ACHS [facility]; Protocol Last Admin: 08/16/18 11:42 Dose: 5 units Insulin Detemir (Levemir Vial) 15 units SQ AM [facility] Last Admin: 08/16/18 06:02 Dose: 15 units Lactic Acid (Lac-Hydrin 12) 1 applic TP Q12H PRN PRN Reason: DRY SKIN Last Admin: 08/14/18 09:35 Dose: 1 applic Metoprolol Tartrate (Lopressor -) 25 mg PO DAILY [facility] Last Admin: 08/16/18 09:16 Dose: 25 mg Sodium Polystyrene Sulfonate (Kayexalate -) 30 gm PO MoWeFr@1000 [facility] Last Admin: 08/16/18 09:15 Dose: 30 gm - Objective Vital Signs: Vital Signs Temperature 97.8 F 08/16/18 10:00 Pulse Rate 70 08/16/18 10:00 Respiratory Rate 20 08/16/18 10:00 Blood Pressure 126/77 08/16/18 10:00 O2 Sat by Pulse Oximetry (%) 100 08/16/18 09:00 Constitutional: Yes: No Distress, Calm Cardiovascular: Yes: S1, S2 Respiratory: Yes: Regular, CTA Bilaterally Gastrointestinal: Yes: Normal Bowel Sounds, Soft Musculoskeletal: Yes: WNL Extremities: Yes: Other Neurological: Yes: Alert, Oriented Psychiatric: Yes: Alert, Oriented Labs: CBC, BMP 08/14/18 06:00 08/15/18 06:00 INR, PTT INR 1.08 (0.83-1.09) 08/11/18 20:00 Assessment/Plan patient with psoriasis diabetic wounds with mild cellulitis of the great rt toe and swelling of the left heel swelling of left heel r/o osteo of rt toe psoriasis plan continue ceftriaxone forangio tomorrow will need abx for a total of 6 weeks wound care rest as per the team
--- NOTE | 2018-08-16 12:16 | PN ---
Progress Note (short form) - Note Progress Note: FUV b/l feet. vss +improving wounds om pvd Intervention tomorrow as per Vascular. IVABX as per ID. HBO close to his home in [place]. Will follow till dc.
--- NOTE | 2018-08-16 22:48 | PN ---
Progress Note, Physician Chief Complaint: awaiting vascular diagnostic testing rt lower extremity - Current Medication List Current Medications: Active Medications Atorvastatin Calcium (Lipitor -) 20 mg PO DAILY [facility] Last Admin: 08/16/18 09:16 Dose: 20 mg Citalopram Hydrobromide (Celexa -) 20 mg PO DAILY [facility] Last Admin: 08/16/18 09:16 Dose: 20 mg Collagenase (Santyl -) 1 applic TP DAILY [facility]; Protocol Last Admin: 08/16/18 09:17 Dose: 1 applic Emollient Ointment (Aquaphor -) 1 applic TP BID [facility] Last Admin: 08/16/18 22:14 Dose: 1 applic Heparin Sodium (Porcine) (Heparin -) 5,000 unit SQ BID [facility] Last Admin: 08/16/18 22:14 Dose: 5,000 unit Ceftriaxone Sodium 1 gm/ (Dextrose) 50 mls @ 100 mls/hr IVPB DAILY [facility]; Protocol Last Admin: 08/16/18 09:16 Dose: 100 mls/hr Insulin Aspart (Novolog Vial Sliding Scale -) 1 vial SQ ACHS [facility]; Protocol Last Admin: 08/16/18 22:14 Dose: 5 units Insulin Detemir (Levemir Vial) 15 units SQ AM [facility] Last Admin: 08/16/18 06:02 Dose: 15 units Lactic Acid (Lac-Hydrin 12) 1 applic TP Q12H PRN PRN Reason: DRY SKIN Last Admin: 08/14/18 09:35 Dose: 1 applic Metoprolol Tartrate (Lopressor -) 25 mg PO DAILY [facility] Last Admin: 08/16/18 09:16 Dose: 25 mg Sodium Polystyrene Sulfonate (Kayexalate -) 30 gm PO MoWeFr@1000 [facility] Last Admin: 08/16/18 09:15 Dose: 30 gm - Objective Vital Signs: Vital Signs Temperature 98.1 F 08/16/18 18:33 Pulse Rate 66 08/16/18 18:33 Respiratory Rate 20 08/16/18 18:33 Blood Pressure 141/88 08/16/18 18:33 O2 Sat by Pulse Oximetry (%) 100 08/16/18 09:00 Constitutional: Yes: Calm Eyes: Yes: EOM Intact HENT: Yes: Normocephalic Neck: Yes: Trachea Midline Cardiovascular: Yes: Regular Rate and Rhythm Respiratory: Yes: CTA Bilaterally Gastrointestinal: Yes: Normal Bowel Sounds ...Rectal Exam: Yes: Deferred Genitourinary: Yes: WNL Musculoskeletal: Yes: Back Pain, Joint Stiffness, Joint Swelling, Muscle Pain Extremities: Yes: Delayed Capillary Refill, Erythema Edema: Yes Peripheral Pulses: Right Dorsalis Pedis: 1+, Right Femoral: 2+ Integumentary: Yes: Rash, Onychomycosis, Venous Stasis Changes Labs: CBC, BMP 08/14/18 06:00 08/15/18 06:00 INR, PTT INR 1.08 (0.83-1.09) 08/11/18 20:00 Problem List - Problems (1) CKD (chronic kidney disease) Code(s): N18.9 - CHRONIC KIDNEY DISEASE, UNSPECIFIED (2) Cellulitis Code(s): L03.90 - CELLULITIS, UNSPECIFIED Qualifiers: Site of cellulitis: extremity Site of cellulitis of extremity: lower extremity Laterality: left Qualified Code(s): L03.116 - Cellulitis of left lower limb (3) Dementia Code(s): F03.90 - UNSPECIFIED DEMENTIA WITHOUT BEHAVIORAL DISTURBANCE (4) Diabetes mellitus Code(s): E11.9 - TYPE 2 DIABETES MELLITUS WITHOUT COMPLICATIONS (5) Diabetic foot Code(s): E11.8 - TYPE 2 DIABETES MELLITUS WITH UNSPECIFIED COMPLICATIONS (6) HTN (hypertension) Code(s): I10 - ESSENTIAL (PRIMARY) HYPERTENSION (7) Hyperkalemia Code(s): E87.5 - HYPERKALEMIA Assessment/Plan Current Active Problems CAD (coronary artery disease) (Acute) CKD (chronic kidney disease) (Acute) Cellulitis (Acute) Dementia (Acute) Diabetes mellitus (Acute) Diabetic foot (Acute) HTN (hypertension) (Acute) Hyperkalemia (Acute) Non-healing wound (Acute) PVD (peripheral vascular disease) (Acute) Preop cardiovascular exam (Acute) Psoriasis (Acute) Laboratory Results - last 24 hr 08/16/18 08/16/18 08/16/18 06:01 11:22 16:28 POC Glucometer 93 220 145 08/16/18 22:12 POC Glucometer 204 plan: bgm qid novolog scale Laboratory Tests 08/15/18 08/16/18 08/16/18 21:56 06:01 11:22 POC Glucometer 122 93 220 08/16/18 16:28 POC Glucometer 145 levemir am 15 units only as need is less in controlled setting
[2018-08-17] MEDS ORDERED: DEXTROSE 5%-0.45% SALINE 1,000 ML IV SCH (01:30)
[2018-08-17] MEDS: INSULIN (LEVEMIR) 100 UNITS/ML UNITS SQ SCH (06:14)
[2018-08-17] MEDS: INSULIN SLIDING SCALE (NOVOLOG) 1 VIAL SQ SCH ×4 (06:14→21:33)
[2018-08-17 07:54] LABS: HEMATOCRIT 38.1 % (35.4-49); HEMOGLOBIN 12.7 GM/dL (11.7-16.9); MCH 31.3 pg (25.7-33.7); MCHC 33.4 g/dl (32.0-35.9); MEAN CELL VOLUME 93.9 fl (80-96); MEAN PLT VOLUME 8.7 fl (7.5-11.1); PLATELET COUNT 185 K/MM3 (134-434); RBC 4.06 M/mm3 (4.00-5.60); WHITE BLOOD COUNT 5.8 K/mm3 (4.0-10.0)
[2018-08-17 08:23] LABS: ALBUMIN 3.3 g/dl (3.4-5.0); ALK PHOS 87 U/L (45-117); ANION GAP 6 MMOL/L (8-16); BILIRUBIN,TOTAL 0.9 mg/dL (0.2-1); BLOOD UREA NITROGEN 20 mg/dL (7-18); CALCIUM 8.5 mg/dL (8.5-10.1); CHLORIDE 105 mmol/L (98-107); CO2 28 mmol/L (21-32); CREATININE 1.1 mg/dL (0.55-1.3); GLUCOSE,RANDOM 96 mg/dL (74-106); POTASSIUM 3.6 mmol/L (3.5-5.1); SGOT/AST 39 U/L (15-37); SGPT/ALT 55 U/L (13-61); SODIUM 139 mmol/L (136-145); TOT PROT 6.3 g/dl (6.4-8.2)
[2018-08-17] MEDS ORDERED: cefTRIAXone SODIUM 1 GM VIAL ONE (10:09)
[2018-08-17] MEDS ORDERED: DEXTROSE 5%-WATER - 50 ML IVPB ONE (10:10)
[2018-08-17] MEDS: HEPARIN NA (PORCINE) 5,000 UNITS/ML 1ML VIAL SQ SCH ×3 (10:12→21:34)
[2018-08-17] MEDS: CEFTRIAXONE 1 GM in DEXTROSE 5%-WATER - 50 ML IVPB SCH (10:12)
[2018-08-17] MEDS: MINERAL OIL/PET HY-PHL TOPICAL OINTMENT 454 GM JAR TP SCH ×2 (10:12→21:34)
[2018-08-17] MEDS: COLLAGENASE CLOSTRIDIUM HIST. 30 GRAMS TUBE TP SCH (10:13)
--- NOTE | 2018-08-17 11:27 | PN ---
Progress Note, Physician Chief Complaint: DIabetic ulcer CKD Uncontrolled DM2 History of Present Illness: NAD sitting in chair going for angiogram today later - Current Medication List Current Medications: Active Medications Atorvastatin Calcium (Lipitor -) 20 mg PO DAILY [facility] Last Admin: 08/16/18 09:16 Dose: 20 mg Citalopram Hydrobromide (Celexa -) 20 mg PO DAILY [facility] Last Admin: 08/16/18 09:16 Dose: 20 mg Collagenase (Santyl -) 1 applic TP DAILY [facility]; Protocol Last Admin: 08/17/18 10:13 Dose: 1 applic Emollient Ointment (Aquaphor -) 1 applic TP BID [facility] Last Admin: 08/17/18 10:12 Dose: 1 applic Heparin Sodium (Porcine) (Heparin -) 5,000 unit SQ BID [facility] Last Admin: 08/17/18 10:18 Dose: Not Given Ceftriaxone Sodium 1 gm/ (Dextrose) 50 mls @ 100 mls/hr IVPB DAILY [facility]; Protocol Last Admin: 08/17/18 10:12 Dose: 100 mls/hr Dextrose/Sodium Chloride (D5-1/2ns -) 1,000 mls @ 42 mls/hr IV ASDIR [facility] Last Admin: 08/17/18 02:24 Dose: 42 mls/hr Insulin Aspart (Novolog Vial Sliding Scale -) 1 vial SQ ACHS [facility]; Protocol Last Admin: 08/17/18 06:14 Dose: Not Given Insulin Detemir (Levemir Vial) 15 units SQ AM [facility] Last Admin: 08/17/18 06:14 Dose: Not Given Lactic Acid (Lac-Hydrin 12) 1 applic TP Q12H PRN PRN Reason: DRY SKIN Last Admin: 08/14/18 09:35 Dose: 1 applic Metoprolol Tartrate (Lopressor -) 25 mg PO DAILY [facility] Last Admin: 08/16/18 09:16 Dose: 25 mg Sodium Polystyrene Sulfonate (Kayexalate -) 30 gm PO MoWeFr@1000 [facility] Last Admin: 08/16/18 09:15 Dose: 30 gm - Objective Vital Signs: Vital Signs Temperature 98.2 F 08/17/18 10:00 Pulse Rate 70 08/17/18 10:00 Respiratory Rate 18 08/17/18 10:00 Blood Pressure 134/69 08/17/18 10:00 O2 Sat by Pulse Oximetry (%) 100 08/16/18 21:00 Labs: CBC, BMP 08/17/18 06:45 08/17/18 06:45 INR, PTT INR 1.08 (0.83-1.09) 08/11/18 20:00 Assessment/Plan (1) CAD (coronary artery disease) Assessment/Plan: -continue with Atorvastatin Code(s): I25.10 - ATHSCL HEART DISEASE OF [place] CORONARY ARTERY W/O ANG PCTRS (2) CKD (chronic kidney disease) Assessment/Plan: -Nephrology on board -Renal US shows no hydronephrosis, no discrete mass, lesion, or calculus -avoid nephrotoxins, NSAIDs Code(s): N18.9 - CHRONIC KIDNEY DISEASE, UNSPECIFIED (3) Dementia Assessment/Plan: -neurology on board -Brain MRI shows generalized volume loss with multiple foci of a small vessel infarction in the periventricular white matter, brainstem and a few in the left cerebellas hemisphere, no mass lesion, acute infarction or hemorrhage Code(s): F03.90 - UNSPECIFIED DEMENTIA WITHOUT BEHAVIORAL DISTURBANCE (4) HTN (hypertension) Assessment/Plan: -continue Metoprolol -NPO except meds for angiogram Code(s): I10 - ESSENTIAL (PRIMARY) HYPERTENSION (5) Non-healing wound Assessment/Plan: -Podiatry and ID on board -Vascular on board -IV Ceftriaxone -no leukocytosis -afebrile -MRI of B/L LE performed and podiatry recommendation appreciated Code(s): [id number] - (6) Hyperkalemia Code(s): E87.5 - HYPERKALEMIA (7) Diabetes mellitus Assessment/Plan: -BGM ACHS -ISS + Levemir -diabetic diet -HgA1c 11.2% Code(s): E11.9 - TYPE 2 DIABETES MELLITUS WITHOUT COMPLICATIONS (8) PVD (peripheral vascular disease) Assessment/Plan: -Vascular on board -scheduled for RLE Angiogram today Code(s): I73.9 - PERIPHERAL VASCULAR DISEASE, UNSPECIFIED
--- NOTE | 2018-08-17 11:40 | PN ---
Progress Note (short form) - Note Progress Note: FUV b/l feet. s/p angioplasty right. vss +improving wounds om pvd IVABX as per ID. HBO close to his home in [place]. Will follow till dc. Discussed with in lobby as I was leaving hospital.
--- NOTE | 2018-08-17 11:47 | PN ---
Progress Note, Physician History of Present Illness: stable doing well no new issues going for angiogram today - Current Medication List Current Medications: Active Medications Atorvastatin Calcium (Lipitor -) 20 mg PO DAILY [facility] Last Admin: 08/16/18 09:16 Dose: 20 mg Citalopram Hydrobromide (Celexa -) 20 mg PO DAILY [facility] Last Admin: 08/16/18 09:16 Dose: 20 mg Collagenase (Santyl -) 1 applic TP DAILY [facility]; Protocol Last Admin: 08/17/18 10:13 Dose: 1 applic Emollient Ointment (Aquaphor -) 1 applic TP BID [facility] Last Admin: 08/17/18 10:12 Dose: 1 applic Heparin Sodium (Porcine) (Heparin -) 5,000 unit SQ BID [facility] Last Admin: 08/17/18 10:18 Dose: Not Given Ceftriaxone Sodium 1 gm/ (Dextrose) 50 mls @ 100 mls/hr IVPB DAILY [facility]; Protocol Last Admin: 08/17/18 10:12 Dose: 100 mls/hr Dextrose/Sodium Chloride (D5-1/2ns -) 1,000 mls @ 42 mls/hr IV ASDIR [facility] Last Admin: 08/17/18 02:24 Dose: 42 mls/hr Insulin Aspart (Novolog Vial Sliding Scale -) 1 vial SQ ACHS [facility]; Protocol Last Admin: 08/17/18 11:29 Dose: Not Given Insulin Detemir (Levemir Vial) 15 units SQ AM [facility] Last Admin: 08/17/18 06:14 Dose: Not Given Lactic Acid (Lac-Hydrin 12) 1 applic TP Q12H PRN PRN Reason: DRY SKIN Last Admin: 08/14/18 09:35 Dose: 1 applic Metoprolol Tartrate (Lopressor -) 25 mg PO DAILY [facility] Last Admin: 08/16/18 09:16 Dose: 25 mg Sodium Polystyrene Sulfonate (Kayexalate -) 30 gm PO MoWeFr@1000 [facility] Last Admin: 08/16/18 09:15 Dose: 30 gm - Objective Vital Signs: Vital Signs Temperature 98.2 F 08/17/18 10:00 Pulse Rate 70 08/17/18 10:00 Respiratory Rate 18 08/17/18 10:00 Blood Pressure 134/69 08/17/18 10:00 O2 Sat by Pulse Oximetry (%) 100 08/16/18 21:00 Constitutional: Yes: No Distress, Calm Cardiovascular: Yes: S1, S2 Respiratory: Yes: Regular, CTA Bilaterally Gastrointestinal: Yes: Normal Bowel Sounds, Soft Musculoskeletal: Yes: WNL Extremities: Yes: Other Neurological: Yes: Alert, Oriented Psychiatric: Yes: Alert, Oriented Labs: CBC, BMP 08/17/18 06:45 08/17/18 06:45 INR, PTT INR 1.08 (0.83-1.09) 08/11/18 20:00 Assessment/Plan patient with psoriasis diabetic wounds with mild cellulitis of the great rt toe and swelling of the left heel swelling of left heel r/o osteo of rt toe psoriasis plan continue ceftriaxone patient for angio will need abx for a total of 6 weeks wound care rest as per the team
--- NOTE | 2018-08-17 12:54 | PN ---
Progress Note (short form) - Note Progress Note: Renal follow up for JAMARCUS on CKD Pt seen and examined at the bedside no acute complaints no sob, cp, abd pain, N/V/D making urine for angiogram today Vital Signs Temperature 98.2 F 08/17/18 10:00 Pulse Rate 70 08/17/18 10:00 Respiratory Rate 18 08/17/18 10:00 Blood Pressure 134/69 08/17/18 10:00 O2 Sat by Pulse Oximetry (%) 100 08/16/18 21:00 Intake & Output 08/14/18 08/15/18 08/16/18 08/17/18 23:59 23:59 23:59 23:59 Intake Total 1170 1100 1280 294 Balance 1170 1100 1280 294 NAD RRR, No M/R CTA, no rales or wheeze soft NT/ND no LE edema, clubbing or cyanosis CBC, BMP 08/17/18 06:45 08/17/18 06:45 Current Medications Atorvastatin Calcium (Lipitor -) 20 mg PO DAILY [facility] Last Admin: 08/16/18 09:16 Dose: 20 mg Citalopram Hydrobromide (Celexa -) 20 mg PO DAILY [facility] Last Admin: 08/16/18 09:16 Dose: 20 mg Collagenase (Santyl -) 1 applic TP DAILY [facility]; Protocol Last Admin: 08/17/18 10:13 Dose: 1 applic Emollient Ointment (Aquaphor -) 1 applic TP BID [facility] Last Admin: 08/17/18 10:12 Dose: 1 applic Heparin Sodium (Porcine) (Heparin -) 5,000 unit SQ BID [facility] Last Admin: 08/17/18 10:18 Dose: Not Given Ceftriaxone Sodium 1 gm/ (Dextrose) 50 mls @ 100 mls/hr IVPB DAILY [facility]; Protocol Last Admin: 08/17/18 10:12 Dose: 100 mls/hr Dextrose/Sodium Chloride (D5-Ns -) 1,000 mls @ 83 mls/hr IV ASDIR [facility] Stop: 08/18/18 12:59 Insulin Aspart (Novolog Vial Sliding Scale -) 1 vial SQ ACHS [facility]; Protocol Last Admin: 08/17/18 11:29 Dose: Not Given Insulin Detemir (Levemir Vial) 15 units SQ AM [facility] Last Admin: 08/17/18 06:14 Dose: Not Given Lactic Acid (Lac-Hydrin 12) 1 applic TP Q12H PRN PRN Reason: DRY SKIN Last Admin: 08/14/18 09:35 Dose: 1 applic Metoprolol Tartrate (Lopressor -) 25 mg PO DAILY [facility] Last Admin: 08/16/18 09:16 Dose: 25 mg Sodium Polystyrene Sulfonate (Kayexalate -) 30 gm PO MoWeFr@1000 [facility] Last Admin: 08/16/18 09:15 Dose: 30 gm 68 year old gentleman with hx of CKD, chronic hyperkalemia (on kayexalate 3x weekly), DM, Hypertension, CAD s/p PCI/CABG, PVD presented with non-healing lower extremity ulcers and noted to have Cr of 1.8. #JAMARCUS on CKD #CKD stage 3 #Chronic Hyperkalemia #LE ulcers/PVD #DM #Hypertension #CAD Renal function improved and stable changed IVF to isotonic saline in preperation for angiogram, continue up to 12- 24 hours post contrast exposure Trend renal function and electrolytes daily continue kayexalate 3x weekly continue antibiotics as per primary team Harpal Luis DO
[2018-08-17] MEDS ORDERED: DEXTROSE 5%-NORMAL SALINE 1,000 ML IV SCH ×2 (13:00→19:20)
[2018-08-17] MEDS: METOPROLOL TARTRATE 25 MG TABLET (FP) PO SCH (13:35)
[2018-08-17] MEDS ORDERED: HEPARIN NA (PORCINE) 5,000 UNITS/ML 1ML VIAL ONE ×2 (16:19→18:19)
[2018-08-17] MEDS ORDERED: LIDOCAINE HCL 1%, 10 MG/ML (20ML VIAL) ONE (16:19)
[2018-08-17] MEDS ORDERED: MIDAZOLAM HCL 2 MG/2 ML SINGLE DOSE VIAL ONE (17:55)
[2018-08-17] MEDS ORDERED: ONDANSETRON 4 MG/2 ML VIAL IVPUSH PRN ×2 (18:50→19:20)
[2018-08-17] MEDS ORDERED: LACTATED RINGERS SOLUTION 1,000 ML IV SCH (19:00)
--- NOTE | 2018-08-17 19:12 | OP ---
Operative Note - Note: Operative Date: 08/17/18 Pre-Operative Diagnosis: Right great toe ulcer Operation: Aortogram, Right lower ext angiogram, anterior tibial artery angioplasty . Findings: ant tibial artery stenosis 70% at take off Post-Operative Diagnosis: Same as Pre-op Surgeon: Jay Birmingham Anesthesia: Fractional Estimated Blood Loss (mls): 50 Operative Report Dictated: Yes
--- NOTE | 2018-08-17 19:15 | PN ---
Progress Note (short form) - Note Progress Note: Vascular Surgery S/P tibial artery angioplasty Palpable DP pulse in right foot. Plavix started. Cont present care. Santyl to right great toe daily. Jay Birmingham DO
[2018-08-17] MEDS ORDERED: AMMONIUM LACTATE 12% LOTION 225 GM BOTTLE TP PRN (19:20)
[2018-08-17] MEDS: CLOPIDOGREL BISULFATE 75 MG TABLET (FP) PO SCH ×2 (19:25→21:33)
[2018-08-17] MEDS: CITALOPRAM HYDROBROMIDE 20 MG TABLET (FP) PO SCH (20:08)
[2018-08-17] MEDS: ATORVASTATIN CA 20 MG TABLET (FP) PO SCH (20:08)
[2018-08-17] MEDS: TRIAMCINOLONE ACET 0.1% OINT 15 GM TUBE TP SCH (21:34)
[2018-08-17] MEDS ORDERED: TRIAMCINOLONE ACET 0.1% OINT 15 GM TUBE TP SCH (22:00)
--- NOTE | 2018-08-18 00:05 | PN ---
Progress Note, Physician Chief Complaint: sp rt tib angioplasty - Current Medication List Current Medications: Active Medications Atorvastatin Calcium (Lipitor -) 20 mg PO HS [facility] Citalopram Hydrobromide (Celexa -) 20 mg PO DAILY [facility] Clopidogrel Bisulfate (Plavix -) 75 mg PO DAILY [facility] Last Admin: 08/17/18 21:33 Dose: Not Given Collagenase (Santyl -) 1 applic TP DAILY [facility]; Protocol Emollient Ointment (Aquaphor -) 1 applic TP BID [facility] Last Admin: 08/17/18 21:34 Dose: 1 applic Fentanyl (Sublimaze Injection -) 25 mcg IVPUSH [id number] PRN PRN Reason: PAIN-PACU ORDER X 4 DOSES ONLY Stop: 08/18/18 06:00 Heparin Sodium (Porcine) (Heparin -) 5,000 unit SQ BID [facility] Last Admin: 08/17/18 21:34 Dose: Not Given Ceftriaxone Sodium 1 gm/ (Dextrose) 50 mls @ 100 mls/hr IVPB DAILY [facility]; Protocol Lactated Ringer's (Lactated Ringers Solution) 1,000 mls @ 75 mls/hr IV ASDIR [facility] Insulin Aspart (Novolog Vial Sliding Scale -) 1 vial SQ ACHS [facility]; Protocol Last Admin: 08/17/18 21:33 Dose: Not Given Insulin Detemir (Levemir Vial) 15 units SQ DAILY@0700 [facility] Lactic Acid (Lac-Hydrin 12) 1 applic TP Q12H PRN PRN Reason: DRY SKIN Metoprolol Tartrate (Lopressor -) 25 mg PO DAILY [facility] Ondansetron HCl (Zofran Injection) 4 mg IVPUSH Q6H PRN PRN Reason: NAUSEA AND/OR VOMITING Stop: 08/18/18 06:00 Triamcinolone Acetonide (Aristocort 0.1% Ointment -) 1 applic TP BID [facility] Last Admin: 08/17/18 21:34 Dose: 1 applic - Objective Vital Signs: Vital Signs Temperature 97.7 F 08/17/18 19:30 Pulse Rate 58 L 08/17/18 19:30 Respiratory Rate 16 08/17/18 19:30 Blood Pressure 168/79 08/17/18 19:30 O2 Sat by Pulse Oximetry (%) 100 08/17/18 19:30 Constitutional: Yes: Calm Eyes: Yes: EOM Intact HENT: Yes: Normocephalic Neck: Yes: Trachea Midline Cardiovascular: Yes: Regular Rate and Rhythm Respiratory: Yes: CTA Bilaterally Gastrointestinal: Yes: Normal Bowel Sounds ...Rectal Exam: Yes: Deferred Genitourinary: Yes: WNL Musculoskeletal: Yes: Muscle Pain, Muscle Weakness Extremities: Yes: Delayed Capillary Refill Edema: No Wound/Incision: Yes: Dressing Dry and Intact Neurological: Yes: Alert, Oriented Labs: CBC, BMP 08/17/18 06:45 08/17/18 06:45 INR, PTT INR 1.08 (0.83-1.09) 08/11/18 20:00 Problem List - Problems (1) CKD (chronic kidney disease) Code(s): N18.9 - CHRONIC KIDNEY DISEASE, UNSPECIFIED (2) Cellulitis Code(s): L03.90 - CELLULITIS, UNSPECIFIED Qualifiers: Site of cellulitis: extremity Site of cellulitis of extremity: lower extremity Laterality: left Qualified Code(s): L03.116 - Cellulitis of left lower limb (3) Dementia Code(s): F03.90 - UNSPECIFIED DEMENTIA WITHOUT BEHAVIORAL DISTURBANCE (4) Diabetes mellitus Code(s): E11.9 - TYPE 2 DIABETES MELLITUS WITHOUT COMPLICATIONS (5) Diabetic foot Code(s): E11.8 - TYPE 2 DIABETES MELLITUS WITH UNSPECIFIED COMPLICATIONS (6) HTN (hypertension) Code(s): I10 - ESSENTIAL (PRIMARY) HYPERTENSION (7) Hyperkalemia Code(s): E87.5 - HYPERKALEMIA Assessment/Plan Current Active Problems CAD (coronary artery disease) (Acute) CKD (chronic kidney disease) (Acute) Cellulitis (Acute) Dementia (Acute) Diabetes mellitus (Acute) Diabetic foot (Acute) HTN (hypertension) (Acute) Hyperkalemia (Acute) Non-healing wound (Acute) PVD (peripheral vascular disease) (Acute) Preop cardiovascular exam (Acute) Psoriasis (Acute) Abnormal Lab Results 08/17/18 06:45 Anion Gap 6 L BUN 20 H AST 39 H Total Protein 6.3 L Albumin 3.3 L Laboratory Results - last 24 hr 08/17/18 08/17/18 08/17/18 06:09 06:45 06:45 WBC 5.8 RBC 4.06 Hgb 12.7 Hct 38.1 MCV 93.9 MCH 31.3 MCHC 33.4 RDW 13.0 Plt Count 185 MPV 8.7 Sodium 139 Potassium 3.6 Chloride 105 Carbon Dioxide 28 Anion Gap 6 L BUN 20 H Creatinine 1.1 Creat Clearance w eGFR 66.57 POC Glucometer 92 Random Glucose 96 Calcium 8.5 Total Bilirubin 0.9 AST 39 H ALT 55 Alkaline Phosphatase 87 Total Protein 6.3 L Albumin 3.3 L 08/17/18 08/17/18 11:32 19:48 WBC RBC Hgb Hct MCV MCH MCHC RDW Plt Count MPV Sodium Potassium Chloride Carbon Dioxide Anion Gap BUN Creatinine Creat Clearance w eGFR POC Glucometer 151 106 Random Glucose Calcium Total Bilirubin AST ALT Alkaline Phosphatase Total Protein Albumin plan: continue bgm qid novolog coverage lower insulin required inhospital constraint levemir 15 units am
[2018-08-18] MEDS: INSULIN SLIDING SCALE (NOVOLOG) 1 VIAL SQ SCH ×4 (06:11→22:25)
[2018-08-18] MEDS: INSULIN (LEVEMIR) 100 UNITS/ML UNITS SQ SCH (06:11)
[2018-08-18 06:56] LABS: ALBUMIN 3.2 g/dl (3.4-5.0); ALK PHOS 85 U/L (45-117); ANION GAP 7 MMOL/L (8-16); BILIRUBIN,TOTAL 0.8 mg/dL (0.2-1); BLOOD UREA NITROGEN 22 mg/dL (7-18); CALCIUM 8.5 mg/dL (8.5-10.1); CHLORIDE 106 mmol/L (98-107); CO2 26 mmol/L (21-32); CREATININE 1.2 mg/dL (0.55-1.3); GLUCOSE,RANDOM 145 mg/dL (74-106); SGOT/AST 37 U/L (15-37); SGPT/ALT 51 U/L (13-61); SODIUM 139 mmol/L (136-145); TOT PROT 5.9 g/dl (6.4-8.2)
[2018-08-18 07:05] LABS: BASO % 0.7 % (0-2.0); EOS % 1.8 % (0-4.5); HEMATOCRIT 36.6 % (35.4-49); HEMOGLOBIN 12.4 GM/dL (11.7-16.9); LYMPH % 15.3 % (8-40); MCH 31.4 pg (25.7-33.7); MCHC 33.8 g/dl (32.0-35.9); MEAN CELL VOLUME 92.8 fl (80-96); MEAN PLT VOLUME 8.8 fl (7.5-11.1); MONO % 7.5 % (3.8-10.2); NEUT % 74.7 % (42.8-82.8); PLATELET COUNT 176 K/MM3 (134-434); RBC 3.95 M/mm3 (4.00-5.60); RDW 13.1 % (11.9-15.9); WHITE BLOOD COUNT 7.5 K/mm3 (4.0-10.0)
[2018-08-18] MEDS: LACTATED RINGERS SOLUTION 1,000 ML IV SCH ×2 (07:18→22:03)
--- NOTE | 2018-08-18 09:10 | PN ---
Progress Note (short form) - Note Progress Note: 68yo M s/p RLE angio, pt seen and examined at bedside. Pt denies any pain in angio site. Denies fever, chills, n/v. Last Vital Signs Temp Pulse Resp BP Pulse Ox 98.2 F 66 18 152/76 98 08/18/18 06:00 08/18/18 06:00 08/18/18 06:00 08/18/18 06:00 08/17/18 21:00 CBC, BMP 08/18/18 05:30 08/18/18 05:30 PE: Gen: a&O x3 Resp: breathing comfortably Abd: soft, nontender Ext: Lt groin incision is clean with no erythema or discharge, no pulsatile swelling. RLE shows +1 pedal pulse Problem List - Problems (1) PVD (peripheral vascular disease) Assessment/Plan: Plan - pt appears well from vascular standpoint, may have pt follow up with Dr. Birmingham in 1-2 weeks for follow up as outpatient. Code(s): I73.9 - PERIPHERAL VASCULAR DISEASE, UNSPECIFIED
[2018-08-18] MEDS ORDERED: cefTRIAXone SODIUM 1 GM VIAL ONE (09:17)
[2018-08-18] MEDS ORDERED: DEXTROSE 5%-WATER - 50 ML IVPB ONE (09:18)
[2018-08-18] MEDS: CLOPIDOGREL BISULFATE 75 MG TABLET (FP) PO SCH (09:36)
[2018-08-18] MEDS: MINERAL OIL/PET HY-PHL TOPICAL OINTMENT 454 GM JAR TP SCH ×2 (09:36→22:09)
[2018-08-18] MEDS: METOPROLOL TARTRATE 25 MG TABLET (FP) PO SCH (09:36)
[2018-08-18] MEDS: TRIAMCINOLONE ACET 0.1% OINT 15 GM TUBE TP SCH ×2 (09:36→22:28)
[2018-08-18] MEDS: HEPARIN NA (PORCINE) 5,000 UNITS/ML 1ML VIAL SQ SCH ×2 (09:36→22:04)
[2018-08-18] MEDS: CITALOPRAM HYDROBROMIDE 20 MG TABLET (FP) PO SCH (09:36)
[2018-08-18] MEDS: COLLAGENASE CLOSTRIDIUM HIST. 30 GRAMS TUBE TP SCH (09:37)
--- NOTE | 2018-08-18 09:53 | PN ---
Progress Note, Physician History of Present Illness: patient stable no new issues post angio - Current Medication List Current Medications: Active Medications Atorvastatin Calcium (Lipitor -) 20 mg PO HS [facility] Citalopram Hydrobromide (Celexa -) 20 mg PO DAILY [facility] Last Admin: 08/18/18 09:36 Dose: 20 mg Clopidogrel Bisulfate (Plavix -) 75 mg PO DAILY [facility] Last Admin: 08/18/18 09:36 Dose: 75 mg Collagenase (Santyl -) 1 applic TP DAILY [facility]; Protocol Last Admin: 08/18/18 09:37 Dose: 1 applic Emollient Ointment (Aquaphor -) 1 applic TP BID [facility] Last Admin: 08/18/18 09:36 Dose: 1 applic Heparin Sodium (Porcine) (Heparin -) 5,000 unit SQ BID [facility] Last Admin: 08/18/18 09:36 Dose: 5,000 unit Ceftriaxone Sodium 1 gm/ (Dextrose) 50 mls @ 100 mls/hr IVPB DAILY [facility]; Protocol Last Admin: 08/18/18 09:36 Dose: 100 mls/hr Lactated Ringer's (Lactated Ringers Solution) 1,000 mls @ 75 mls/hr IV ASDIR [facility] Last Admin: 08/18/18 07:18 Dose: Not Given Insulin Aspart (Novolog Vial Sliding Scale -) 1 vial SQ ACHS [facility]; Protocol Last Admin: 08/18/18 06:11 Dose: Not Given Insulin Detemir (Levemir Vial) 15 units SQ DAILY@0700 [facility] Last Admin: 08/18/18 06:11 Dose: 15 units Lactic Acid (Lac-Hydrin 12) 1 applic TP Q12H PRN PRN Reason: DRY SKIN Metoprolol Tartrate (Lopressor -) 25 mg PO DAILY [facility] Last Admin: 08/18/18 09:36 Dose: Not Given Triamcinolone Acetonide (Aristocort 0.1% Ointment -) 1 applic TP BID [facility] Last Admin: 08/18/18 09:36 Dose: 1 applic - Objective Vital Signs: Vital Signs Temperature 97.6 F 08/18/18 09:27 Pulse Rate 75 08/18/18 09:27 Respiratory Rate 20 08/18/18 09:27 Blood Pressure 107/61 08/18/18 09:27 O2 Sat by Pulse Oximetry (%) 98 08/17/18 21:00 Constitutional: Yes: No Distress, Calm Cardiovascular: Yes: S1, S2 Gastrointestinal: Yes: Normal Bowel Sounds, Soft Musculoskeletal: Yes: WNL Extremities: Yes: Other (psoriasis) Wound/Incision: Yes: Dressing Dry and Intact Neurological: Yes: Alert, Oriented Psychiatric: Yes: Alert, Oriented Labs: CBC, BMP 08/18/18 05:30 08/18/18 05:30 INR, PTT INR 1.08 (0.83-1.09) 08/11/18 20:00 Assessment/Plan patient with psoriasis diabetic wounds with mild cellulitis of the great rt toe and swelling of the left heel swelling of left heel r/o osteo of rt toe psoriasis plan continue ceftriaxone for final plan will need abx for a total of 5 weeks wound care rest as per the team
[2018-08-18] MEDS ORDERED: CEFTRIAXONE 1 GM in DEXTROSE 5%-WATER - 50 ML IVPB SCH (10:00)
[2018-08-18] MEDS ORDERED: SODIUM POLYSTYRENE SULFONATE 15 GM/60 ML BOTTLE PO SCH (10:00)
--- NOTE | 2018-08-18 10:36 | PN ---
Progress Note (short form) - Note Progress Note: Anesthesiology Post-op 68 y.o. man POD#1 s/p LLE angiogram with angioplasty under MAC. Pt. is awake, sitting comfortably in bed. He denies pain and states he is feeling well. No apparent anesthesia-related issues. VSS. 68 y.o. man with stable post-operative course. Continue management as per primary team.
--- NOTE | 2018-08-18 11:34 | PN ---
Progress Note, Physician Chief Complaint: DIabetic ulcer CKD Uncontrolled DM2 History of Present Illness: NAD s/p angio Seen by ID last MRI right LE couldn't exclude Osteomyelitis - Current Medication List Current Medications: Active Medications Atorvastatin Calcium (Lipitor -) 20 mg PO HS [facility] Citalopram Hydrobromide (Celexa -) 20 mg PO DAILY [facility] Last Admin: 08/18/18 09:36 Dose: 20 mg Clopidogrel Bisulfate (Plavix -) 75 mg PO DAILY [facility] Last Admin: 08/18/18 09:36 Dose: 75 mg Collagenase (Santyl -) 1 applic TP DAILY [facility]; Protocol Last Admin: 08/18/18 09:37 Dose: 1 applic Emollient Ointment (Aquaphor -) 1 applic TP BID [facility] Last Admin: 08/18/18 09:36 Dose: 1 applic Heparin Sodium (Porcine) (Heparin -) 5,000 unit SQ BID [facility] Last Admin: 08/18/18 09:36 Dose: 5,000 unit Ceftriaxone Sodium 1 gm/ (Dextrose) 50 mls @ 100 mls/hr IVPB DAILY [facility]; Protocol Last Admin: 08/18/18 09:36 Dose: 100 mls/hr Lactated Ringer's (Lactated Ringers Solution) 1,000 mls @ 75 mls/hr IV ASDIR [facility] Last Admin: 08/18/18 07:18 Dose: Not Given Insulin Aspart (Novolog Vial Sliding Scale -) 1 vial SQ ACHS [facility]; Protocol Last Admin: 08/18/18 06:11 Dose: Not Given Insulin Detemir (Levemir Vial) 15 units SQ DAILY@0700 [facility] Last Admin: 08/18/18 06:11 Dose: 15 units Lactic Acid (Lac-Hydrin 12) 1 applic TP Q12H PRN PRN Reason: DRY SKIN Metoprolol Tartrate (Lopressor -) 25 mg PO DAILY [facility] Last Admin: 08/18/18 09:36 Dose: Not Given Triamcinolone Acetonide (Aristocort 0.1% Ointment -) 1 applic TP BID [facility] Last Admin: 08/18/18 09:36 Dose: 1 applic - Objective Vital Signs: Vital Signs Temperature 97.6 F 08/18/18 09:27 Pulse Rate 75 08/18/18 09:27 Respiratory Rate 20 08/18/18 09:27 Blood Pressure 107/61 08/18/18 09:27 O2 Sat by Pulse Oximetry (%) 98 08/17/18 21:00 Constitutional: Yes: Well Nourished, No Distress, Calm Cardiovascular: Yes: Regular Rate and Rhythm Respiratory: Yes: Regular Gastrointestinal: Yes: WNL Genitourinary: Yes: WNL Musculoskeletal: Yes: WNL Extremities: Yes: WNL Edema: No Peripheral Pulses WNL: Yes Wound/Incision: Yes: Dressing Dry and Intact (right foot) Neurological: Yes: Alert, Oriented Psychiatric: Yes: Alert, Oriented Labs: CBC, BMP 08/18/18 05:30 08/18/18 05:30 INR, PTT INR 1.08 (0.83-1.09) 08/11/18 20:00 Assessment/Plan (1) CAD (coronary artery disease) Assessment/Plan: -continue with Atorvastatin Code(s): I25.10 - ATHSCL HEART DISEASE OF [place] CORONARY ARTERY W/O ANG PCTRS (2) CKD (chronic kidney disease) Assessment/Plan: -Nephrology on board -Renal US shows no hydronephrosis, no discrete mass, lesion, or calculus -avoid nephrotoxins, NSAIDs Code(s): N18.9 - CHRONIC KIDNEY DISEASE, UNSPECIFIED (3) Dementia Assessment/Plan: -neurology on board -Brain MRI shows generalized volume loss with multiple foci of a small vessel infarction in the periventricular white matter, brainstem and a few in the left cerebellas hemisphere, no mass lesion, acute infarction or hemorrhage Code(s): F03.90 - UNSPECIFIED DEMENTIA WITHOUT BEHAVIORAL DISTURBANCE (4) HTN (hypertension) Assessment/Plan: -continue Metoprolol Code(s): I10 - ESSENTIAL (PRIMARY) HYPERTENSION (5) Non-healing wound Assessment/Plan: -Podiatry and ID on board -Vascular on board -IV Ceftriaxone x 5 weeks, call placed to ID to confirm if we need repeat MRI -PICC line -no leukocytosis -afebrile -MRI of B/L LE performed and podiatry recommendation appreciated Code(s): PXY2896 - (6) Hyperkalemia Code(s): E87.5 - HYPERKALEMIA (7) Diabetes mellitus Assessment/Plan: -BGM ACHS -ISS + Levemir -diabetic diet -HgA1c 11.2% Code(s): E11.9 - TYPE 2 DIABETES MELLITUS WITHOUT COMPLICATIONS (8) PVD (peripheral vascular disease) Assessment/Plan: -Vascular on board -scheduled for RLE Angiogram today Code(s): I73.9 - PERIPHERAL VASCULAR DISEASE, UNSPECIFIED
[2018-08-18] MEDS ORDERED: INSULIN (NOVOLOG) ASPART 100 UNITS/ML 10ML VIAL ONE ×2 (12:19→21:20)
--- NOTE | 2018-08-18 14:47 | OP ---
DATE OF OPERATION: 08/17/2018 PREOPERATIVE DIAGNOSIS: Right great toe ulcer. POSTOPERATIVE DIAGNOSIS: Right great toe ulcer. PROCEDURE: Aortogram, right lower extremity angiogram, anterior tibial artery angioplasty. SURGEON: Jay Marcelino DO ANESTHESIA: Fractional. BLOOD LOSS: 50 mL. The patient is a 68-year-old male that has a 3-week history of a right great toe ulcer secondary to trauma that has been nonhealing. He was evaluated by a vascular surgeon up near [place] and was told that he needs multiple procedures. Patient was then admitted to [facility] and Vascular Surgery was consulted. We spoke to the family and it was decided that patient needs an angiogram due to his nonhealing ulcer. Patient's consented for the procedure, understanding all risks, benefits, and alternatives, and the patient was then brought to the operating room. Once in the operating room, he was placed on the operating table in supine manner. The area of the right and left groin were prepped and draped in sterile surgical manner. We then injected 10 mL of lidocaine 1% over the left common femoral artery. We then took our micropuncture needle and punctured the left common femoral artery. Micropuncture wire was inserted. Micropuncture sheath was inserted. A 0.035 floppy guidewire was inserted and a traditional 5-Yoruba sheath was inserted. We then placed a wire up into the aorta followed by Omni Flush catheter. We then shot an aortogram via hand injection showing that the aorta and the iliac arteries were without any disease. We then brought our 0.035 floppy guidewire up and over to the right common femoral artery and Omni Flush catheter followed. We then shot an angiogram of the right lower extremity showing that the common femoral artery, the profunda, and the SFA were patent. The popliteal artery was patent. TP trunk was patent. Main runoff for the patient was the PT and DP, but the takeoff of the anterior tibial artery was diseased about 70% to 80%. At this point, we placed a 0.035 Stiff guidewire down into the SFA. Omni Flush catheter was removed. A 6 x 45 Crossover sheath was placed, and 5000 units of IV heparin were administered to the patient. We then brought our wire down to the TP trunk and using a Quick-Cross catheter, we were able to negotiate the wire and place it into the anterior tibial artery and then exchanged the wire for a 300 private pilot. We then went ahead and used a 3 x 10 ULTRAVERSE balloon and performed angioplasty of the anterior tibial artery. Completion angiogram now showed that the takeoff of the anterior tibial artery was patent, no recoil, and it was good brisk flow going down into the foot. Patient now had a palpable DP pulse. At this point, we brought our sheath up and over. StarClose Device was successfully deployed in the left common femoral artery. Pressure was held for 5 minutes. After there was no more bleeding. The areas were then dried, and Dermabond was placed. Patient tolerated the procedure with no complication. Patient transferred to PACU in stable condition where Plavix will be started. JAY MARCELINO DO [id number]
--- NOTE | 2018-08-18 15:57 | PN ---
Progress Note (short form) - Note Progress Note: Renal follow up for JAMARCUS on CKD Pt seen and examined at the bedside no acute complaints no sob, cp, abd pain, N/V/D s/p angiogram and angioplasty yesterday making urine Vital Signs Temperature 97.9 F 08/18/18 14:05 Pulse Rate 78 08/18/18 14:05 Respiratory Rate 20 08/18/18 14:05 Blood Pressure 143/66 08/18/18 14:05 O2 Sat by Pulse Oximetry (%) 98 08/17/18 21:00 Intake & Output 08/15/18 08/16/18 08/17/18 08/18/18 23:59 23:59 23:59 23:59 Intake Total 1100 1280 944 900 Balance 1100 1280 944 900 NAD RRR, No M/R CTA, no rales or wheeze soft NT/ND no LE edema, clubbing or cyanosis CBC, BMP 08/18/18 05:30 08/18/18 05:30 Current Medications Atorvastatin Calcium (Lipitor -) 20 mg PO HS [facility] Citalopram Hydrobromide (Celexa -) 20 mg PO DAILY [facility] Last Admin: 08/18/18 09:36 Dose: 20 mg Clopidogrel Bisulfate (Plavix -) 75 mg PO DAILY [facility] Last Admin: 08/18/18 09:36 Dose: 75 mg Collagenase (Santyl -) 1 applic TP DAILY [facility]; Protocol Last Admin: 08/18/18 09:37 Dose: 1 applic Emollient Ointment (Aquaphor -) 1 applic TP BID [facility] Last Admin: 08/18/18 09:36 Dose: 1 applic Heparin Sodium (Porcine) (Heparin -) 5,000 unit SQ BID [facility] Last Admin: 08/18/18 09:36 Dose: 5,000 unit Lactated Ringer's (Lactated Ringers Solution) 1,000 mls @ 75 mls/hr IV ASDIR [facility] Last Admin: 08/18/18 07:18 Dose: Not Given Ceftriaxone Sodium 2 gm/ (Dextrose) 100 mls @ 100 mls/hr IVPB DAILY [facility]; Protocol Insulin Aspart (Novolog Vial Sliding Scale -) 1 vial SQ ACHS [facility]; Protocol Last Admin: 08/18/18 12:20 Dose: 3 units Insulin Detemir (Levemir Vial) 15 units SQ DAILY@0700 [facility] Last Admin: 08/18/18 06:11 Dose: 15 units Lactic Acid (Lac-Hydrin 12) 1 applic TP Q12H PRN PRN Reason: DRY SKIN Metoprolol Tartrate (Lopressor -) 25 mg PO DAILY [facility] Last Admin: 08/18/18 09:36 Dose: Not Given Triamcinolone Acetonide (Aristocort 0.1% Ointment -) 1 applic TP BID [facility] Last Admin: 08/18/18 09:36 Dose: 1 applic 68 year old gentleman with hx of CKD, chronic hyperkalemia (on kayexalate 3x weekly), DM, Hypertension, CAD s/p PCI/CABG, PVD presented with non-healing lower extremity ulcers and noted to have Cr of 1.8. #JAMARCUS on CKD #CKD stage 3 #Chronic Hyperkalemia #LE ulcers/PVD #DM #Hypertension #CAD Renal function improved and stable would monitor for additional 24 hour as pt had contrast exposure yesteday can discontinue IVF now Trend renal function and electrolytes daily K is improved, off kayexalate continue antibiotics as per primary team Harpal Luis DO
[2018-08-18] MEDS ORDERED: PT OWN MED DRAWER 7, Y5N ONE (21:14)
[2018-08-18] MEDS ORDERED: INSULIN (LEVEMIR) 100 UNITS/ML UNITS SQ ONE (21:21)
[2018-08-18] MEDS ORDERED: ATORVASTATIN CA 20 MG TABLET (FP) PO SCH (22:00)
[2018-08-19] MEDS: INSULIN (LEVEMIR) 100 UNITS/ML UNITS SQ SCH (06:16)
[2018-08-19] MEDS: INSULIN SLIDING SCALE (NOVOLOG) 1 VIAL SQ SCH ×3 (06:17→17:30)
[2018-08-19 07:45] LABS: ANION GAP 4 MMOL/L (8-16); BLOOD UREA NITROGEN 17 mg/dL (7-18); CALCIUM 8.6 mg/dL (8.5-10.1); CHLORIDE 106 mmol/L (98-107); CO2 29 mmol/L (21-32); CREATININE 1.1 mg/dL (0.55-1.3); GLUCOSE,RANDOM 112 mg/dL (74-106); POTASSIUM 4.5 mmol/L (3.5-5.1); SODIUM 139 mmol/L (136-145)
[2018-08-19] MEDS ORDERED: INSULIN (LEVEMIR) 100 UNITS/ML UNITS SQ ONE (07:48)
[2018-08-19] MEDS ORDERED: DEXTROSE 5%-WATER 100 ML IVPB ONE (09:07)
[2018-08-19] MEDS: CITALOPRAM HYDROBROMIDE 20 MG TABLET (FP) PO SCH (09:29)
[2018-08-19] MEDS: HEPARIN NA (PORCINE) 5,000 UNITS/ML 1ML VIAL SQ SCH (09:29)
[2018-08-19] MEDS: MINERAL OIL/PET HY-PHL TOPICAL OINTMENT 454 GM JAR TP SCH (09:29)
[2018-08-19] MEDS: CLOPIDOGREL BISULFATE 75 MG TABLET (FP) PO SCH (09:29)
[2018-08-19] MEDS: METOPROLOL TARTRATE 25 MG TABLET (FP) PO SCH (09:29)
[2018-08-19] MEDS: TRIAMCINOLONE ACET 0.1% OINT 15 GM TUBE TP SCH (09:30)
[2018-08-19] MEDS: COLLAGENASE CLOSTRIDIUM HIST. 30 GRAMS TUBE TP SCH (09:30)
[2018-08-19] MEDS ORDERED: CEFTRIAXONE 2 GM in DEXTROSE 5%-WATER 100 ML IVPB SCH (10:00)
--- NOTE | 2018-08-19 10:28 | PN ---
Progress Note, Physician History of Present Illness: stable doing well no new issues - Current Medication List Current Medications: Active Medications Atorvastatin Calcium (Lipitor -) 20 mg PO HS [facility] Last Admin: 08/18/18 22:04 Dose: 20 mg Citalopram Hydrobromide (Celexa -) 20 mg PO DAILY [facility] Last Admin: 08/19/18 09:29 Dose: 20 mg Clopidogrel Bisulfate (Plavix -) 75 mg PO DAILY [facility] Last Admin: 08/19/18 09:29 Dose: 75 mg Collagenase (Santyl -) 1 applic TP DAILY [facility]; Protocol Last Admin: 08/19/18 09:30 Dose: 1 applic Emollient Ointment (Aquaphor -) 1 applic TP BID [facility] Last Admin: 08/19/18 09:29 Dose: 1 applic Heparin Sodium (Porcine) (Heparin -) 5,000 unit SQ BID [facility] Last Admin: 08/19/18 09:29 Dose: 5,000 unit Ceftriaxone Sodium 2 gm/ (Dextrose) 100 mls @ 100 mls/hr IVPB DAILY [facility]; Protocol Last Admin: 08/19/18 09:29 Dose: 100 mls/hr Insulin Aspart (Novolog Vial Sliding Scale -) 1 vial SQ ACHS [facility]; Protocol Last Admin: 08/19/18 06:17 Dose: Not Given Insulin Detemir (Levemir Vial) 15 units SQ DAILY@0700 [facility] Last Admin: 08/19/18 06:16 Dose: 15 units Lactic Acid (Lac-Hydrin 12) 1 applic TP Q12H PRN PRN Reason: DRY SKIN Last Admin: 08/18/18 22:07 Dose: 1 applic Metoprolol Tartrate (Lopressor -) 25 mg PO DAILY [facility] Last Admin: 08/19/18 09:29 Dose: 25 mg Triamcinolone Acetonide (Aristocort 0.1% Ointment -) 1 applic TP BID [facility] Last Admin: 08/19/18 09:30 Dose: 1 applic - Objective Vital Signs: Vital Signs Temperature 98.4 F 08/19/18 09:38 Pulse Rate 76 08/19/18 09:38 Respiratory Rate 20 08/19/18 09:38 Blood Pressure 146/87 08/19/18 09:38 O2 Sat by Pulse Oximetry (%) 96 08/19/18 09:00 Constitutional: Yes: No Distress, Calm Cardiovascular: Yes: Regular Rate and Rhythm Respiratory: Yes: Regular, CTA Bilaterally Gastrointestinal: Yes: Normal Bowel Sounds, Soft Musculoskeletal: Yes: WNL Extremities: Yes: Other (psoriasis) Neurological: Yes: Alert, Oriented Psychiatric: Yes: Alert, Oriented Labs: CBC, BMP 08/18/18 05:30 08/19/18 06:30 INR, PTT INR 1.08 (0.83-1.09) 08/11/18 20:00 Assessment/Plan patient with psoriasis diabetic wounds with mild cellulitis of the great rt toe and swelling of the left heel swelling of left heel r/o osteo of rt toe psoriasis plan continue ceftriaxone for final plan will need abx for a total of 5 weeks wound care rest as per the team mri after 3 months
--- NOTE | 2018-08-19 11:43 | PN ---
Progress Note, Physician Chief Complaint: Foot Wound CKD DM - Current Medication List Current Medications: Active Medications Atorvastatin Calcium (Lipitor -) 20 mg PO HS [facility] Last Admin: 08/18/18 22:04 Dose: 20 mg Citalopram Hydrobromide (Celexa -) 20 mg PO DAILY [facility] Last Admin: 08/19/18 09:29 Dose: 20 mg Clopidogrel Bisulfate (Plavix -) 75 mg PO DAILY [facility] Last Admin: 08/19/18 09:29 Dose: 75 mg Collagenase (Santyl -) 1 applic TP DAILY [facility]; Protocol Last Admin: 08/19/18 09:30 Dose: 1 applic Emollient Ointment (Aquaphor -) 1 applic TP BID [facility] Last Admin: 08/19/18 09:29 Dose: 1 applic Heparin Sodium (Porcine) (Heparin -) 5,000 unit SQ BID [facility] Last Admin: 08/19/18 09:29 Dose: 5,000 unit Ceftriaxone Sodium 2 gm/ (Dextrose) 100 mls @ 100 mls/hr IVPB DAILY [facility]; Protocol Last Admin: 08/19/18 09:29 Dose: 100 mls/hr Insulin Aspart (Novolog Vial Sliding Scale -) 1 vial SQ ACHS [facility]; Protocol Last Admin: 08/19/18 06:17 Dose: Not Given Insulin Detemir (Levemir Vial) 15 units SQ DAILY@0700 [facility] Last Admin: 08/19/18 06:16 Dose: 15 units Lactic Acid (Lac-Hydrin 12) 1 applic TP Q12H PRN PRN Reason: DRY SKIN Last Admin: 08/18/18 22:07 Dose: 1 applic Metoprolol Tartrate (Lopressor -) 25 mg PO DAILY [facility] Last Admin: 08/19/18 09:29 Dose: 25 mg Triamcinolone Acetonide (Aristocort 0.1% Ointment -) 1 applic TP BID [facility] Last Admin: 08/19/18 09:30 Dose: 1 applic - Objective Vital Signs: Vital Signs Temperature 98.4 F 08/19/18 09:38 Pulse Rate 76 08/19/18 09:38 Respiratory Rate 20 08/19/18 09:38 Blood Pressure 146/87 08/19/18 09:38 O2 Sat by Pulse Oximetry (%) 96 08/19/18 09:00 Constitutional: Yes: No Distress, Calm Eyes: Yes: Conjunctiva Clear HENT: Yes: Atraumatic Cardiovascular: Yes: Regular Rate and Rhythm Respiratory: Yes: Regular, CTA Bilaterally Gastrointestinal: Yes: Normal Bowel Sounds, Soft Genitourinary: Yes: Incontinence Musculoskeletal: Yes: Muscle Weakness Extremities: Yes: WNL Edema: No Integumentary: Yes: Rash Wound/Incision: Yes: Dressing Dry and Intact Neurological: Yes: Alert, Pre-Existing Deficit Psychiatric: Yes: Alert Labs: CBC, BMP 08/18/18 05:30 08/19/18 06:30 INR, PTT INR 1.08 (0.83-1.09) 08/11/18 20:00 Microbiology 08/11/18 20:00 Blood - Peripheral Venous Blood Culture - Final NO GROWTH AFTER 5 DAYS INCUBATION 08/11/18 20:00 Blood - Peripheral Venous Blood Culture - Final NO GROWTH AFTER 5 DAYS INCUBATION Problem List - Problems (1) CAD (coronary artery disease) Code(s): I25.10 - ATHSCL HEART DISEASE OF [place] CORONARY ARTERY W/O ANG PCTRS (2) CKD (chronic kidney disease) Code(s): N18.9 - CHRONIC KIDNEY DISEASE, UNSPECIFIED (3) Dementia Code(s): F03.90 - UNSPECIFIED DEMENTIA WITHOUT BEHAVIORAL DISTURBANCE (4) HTN (hypertension) Code(s): I10 - ESSENTIAL (PRIMARY) HYPERTENSION (5) Non-healing wound Code(s): DTG1113 - (6) Hyperkalemia Code(s): E87.5 - HYPERKALEMIA (7) Diabetes mellitus Code(s): E11.9 - TYPE 2 DIABETES MELLITUS WITHOUT COMPLICATIONS (8) PVD (peripheral vascular disease) Code(s): I73.9 - PERIPHERAL VASCULAR DISEASE, UNSPECIFIED
--- NOTE | 2018-08-19 14:55 | PN ---
Progress Note, Physician Chief Complaint: The patient seen and exanined in his room. On bed. Seems comfortable. No chest pains. No shortness of breath. Maintains good urine output. History of Present Illness: This is a 68 year old gentleman with hx of CKD, chronic hyperkalemia ( on kayexalate 3x weekly), DM, Hypertension, CAD s/p PCI/CABG, PVD presented with non-healing lower extremity ulcers and noted to have Cr of 1.8. His baseline S. Cr ~1.3. Denies any sob, cp, abd pain, fever, chils, N/V/D. The patient had IV contrast and his renal functions are being monitored. - Current Medication List Current Medications: Active Medications Atorvastatin Calcium (Lipitor -) 20 mg PO HS [facility] Last Admin: 08/18/18 22:04 Dose: 20 mg Citalopram Hydrobromide (Celexa -) 20 mg PO DAILY [facility] Last Admin: 08/19/18 09:29 Dose: 20 mg Clopidogrel Bisulfate (Plavix -) 75 mg PO DAILY [facility] Last Admin: 08/19/18 09:29 Dose: 75 mg Collagenase (Santyl -) 1 applic TP DAILY [facility]; Protocol Last Admin: 08/19/18 09:30 Dose: 1 applic Emollient Ointment (Aquaphor -) 1 applic TP BID [facility] Last Admin: 08/19/18 09:29 Dose: 1 applic Heparin Sodium (Porcine) (Heparin -) 5,000 unit SQ BID [facility] Last Admin: 08/19/18 09:29 Dose: 5,000 unit Ceftriaxone Sodium 2 gm/ (Dextrose) 100 mls @ 100 mls/hr IVPB DAILY [facility]; Protocol Last Admin: 08/19/18 09:29 Dose: 100 mls/hr Insulin Aspart (Novolog Vial Sliding Scale -) 1 vial SQ ACHS [facility]; Protocol Last Admin: 08/19/18 13:28 Dose: Not Given Insulin Detemir (Levemir Vial) 15 units SQ DAILY@0700 [facility] Last Admin: 08/19/18 06:16 Dose: 15 units Lactic Acid (Lac-Hydrin 12) 1 applic TP Q12H PRN PRN Reason: DRY SKIN Last Admin: 08/18/18 22:07 Dose: 1 applic Metoprolol Tartrate (Lopressor -) 25 mg PO DAILY [facility] Last Admin: 08/19/18 09:29 Dose: 25 mg Triamcinolone Acetonide (Aristocort 0.1% Ointment -) 1 applic TP BID [facility] Last Admin: 08/19/18 09:30 Dose: 1 applic - Objective Vital Signs: Vital Signs Temperature 98.1 F 08/19/18 13:26 Pulse Rate 64 08/19/18 13:26 Respiratory Rate 20 08/19/18 13:26 Blood Pressure 134/58 L 08/19/18 13:26 O2 Sat by Pulse Oximetry (%) 96 08/19/18 09:00 Constitutional: Yes: No Distress, Calm Eyes: Yes: Conjunctiva Clear HENT: Yes: Normocephalic Neck: Yes: Trachea Midline Cardiovascular: Yes: Regular Rate and Rhythm, S1, S2 Respiratory: Yes: CTA Bilaterally, Diminished Gastrointestinal: Yes: Normal Bowel Sounds, Soft Genitourinary: No: Bladder Distention, CVA Tenderness - Left, CVA Tenderness - Right Musculoskeletal: No: Joint Stiffness Edema: Yes Edema: LLE: 1+, RLE: 1+ Neurological: Yes: Alert, Oriented Labs: CBC, BMP 08/18/18 05:30 08/19/18 06:30 INR, PTT INR 1.08 (0.83-1.09) 08/11/18 20:00 Assessment/Plan This is a 68 year old gentleman with hx of CKD, chronic hyperkalemia ( on kayexalate 3x weekly), DM, Hypertension, CAD s/p PCI/CABG, PVD presented with non-healing lower extremity ulcers and noted to have Cr of 1.8. The patient had IV contrast for evaluation of his peripheral perfusion. Serum Creatinine down to 1.1, and maintained there. No evidence of Contrast Nephropathy. Will monitor the renal functions closely. Has underlying CKD. No interventions needed at this point for the renal disease. Ebony Linares MD
--- NOTE | 2018-08-19 18:05 | DS ---
Physical Examination Vital Signs: Vital Signs Temperature 98.1 F 08/19/18 13:26 Pulse Rate 64 08/19/18 13:26 Respiratory Rate 20 08/19/18 13:26 Blood Pressure 134/58 L 08/19/18 13:26 O2 Sat by Pulse Oximetry (%) 96 08/19/18 09:00 Findings/Remarks: Patient is a 68 y/o male with past medical history of DM, HTN, CAD, PVD, Dementia, Psoriasis. Patient sent to ER after seeing Dr Mcelroy for admission for non-healing diabetic foot wound to [facility] and R great toe. Patient was being treated with PO ABT as outpatient. Patient had PICC line placed and sent to SNF for long-term ABT for osteomyelitis. Constitutional: Yes: No Distress Eyes: Yes: Conjunctiva Clear HENT: Yes: Atraumatic Cardiovascular: Yes: Regular Rate and Rhythm Respiratory: Yes: Regular, CTA Bilaterally Gastrointestinal: Yes: Normal Bowel Sounds, Soft Musculoskeletal: Yes: Muscle Weakness Extremities: Yes: WNL Edema: No Wound/Incision: Yes: Dressing Dry and Intact Neurological: Yes: Alert, Pre-Existing Deficit Psychiatric: Yes: Alert Labs: CBC, BMP 08/18/18 05:30 08/19/18 06:30 Discharge Summary Reason For Visit: WOUND OF FOOT, DIABETES MELLITUS Current Active Problems CAD (coronary artery disease) (Acute) CKD (chronic kidney disease) (Acute) Cellulitis (Acute) Dementia (Acute) Diabetes mellitus (Acute) Diabetic foot (Acute) HTN (hypertension) (Acute) Hyperkalemia (Acute) Non-healing wound (Acute) PVD (peripheral vascular disease) (Acute) Preop cardiovascular exam (Acute) Psoriasis (Acute) Hospital Course: see progress notes Laboratory Tests 08/11/18 08/11/18 08/11/18 19:46 20:00 20:00 WBC 8.0 RBC 4.08 Hgb 12.9 Hct 38.5 MCV 94.3 MCH 31.7 MCHC 33.6 RDW 13.4 Plt Count 219 MPV 8.3 Absolute Neuts (auto) 5.6 Neutrophils % 70.5 Lymphocytes % 19.4 Monocytes % 7.1 Eosinophils % 2.0 Basophils % 1.0 Nucleated RBC % 0 ESR PT with INR 12.70 INR 1.08 PTT (Actin FS) 31.5 Sodium Potassium Chloride Carbon Dioxide Anion Gap BUN Creatinine Creat Clearance w eGFR POC Glucometer Random Glucose Hemoglobin A1c % Lactic Acid 1.9 Calcium Phosphorus Magnesium Total Bilirubin AST ALT Alkaline Phosphatase C-Reactive Protein Total Protein Albumin Vitamin B12 TSH Urine Color Urine Appearance Urine pH Ur Specific [place] Urine Protein Urine Glucose (UA) Urine Ketones Urine Blood Urine Nitrite Urine Bilirubin Urine Urobilinogen Ur Leukocyte Esterase U Random Total Protein Ur Random Sodium Ur Random Urea Nitrogn RPR Titer 08/11/18 08/12/18 08/12/18 20:00 06:13 06:15 WBC 7.8 RBC 4.02 Hgb 12.6 Hct 37.6 MCV 93.4 MCH 31.3 MCHC 33.5 RDW 13.4 Plt Count 197 MPV 8.8 Absolute Neuts (auto) 5.0 Neutrophils % 64.3 Lymphocytes % 24.6 D Monocytes % 7.7 Eosinophils % 2.4 Basophils % 1.0 Nucleated RBC % 0 ESR PT with INR INR PTT (Actin FS) Sodium 136 Potassium 5.0 Chloride 104 Carbon Dioxide 26 Anion Gap 6 L BUN 35 H Creatinine 1.9 H Creat Clearance w eGFR 35.43 POC Glucometer 185 Random Glucose 282 H Hemoglobin A1c % Lactic Acid Calcium 8.9 Phosphorus Magnesium Total Bilirubin 0.6 AST 30 ALT 56 Alkaline Phosphatase 118 H C-Reactive Protein Total Protein 6.6 Albumin 3.5 Vitamin B12 TSH Urine Color Urine Appearance Urine pH Ur Specific [place] Urine Protein Urine Glucose (UA) Urine Ketones Urine Blood Urine Nitrite Urine Bilirubin Urine Urobilinogen Ur Leukocyte Esterase U Random Total Protein Ur Random Sodium Ur Random Urea Nitrogn RPR Titer 08/12/18 08/12/18 08/12/18 06:15 11:17 14:36 WBC RBC Hgb Hct MCV MCH MCHC RDW Plt Count MPV Absolute Neuts (auto) Neutrophils % Lymphocytes % Monocytes % Eosinophils % Basophils % Nucleated RBC % ESR PT with INR INR PTT (Actin FS) Sodium 138 Potassium 5.3 H Chloride 105 Carbon Dioxide 28 Anion Gap 4 L BUN 34 H Creatinine 1.6 H Creat Clearance w eGFR 43.20 POC Glucometer 157 Random Glucose 186 H Hemoglobin A1c % Lactic Acid Calcium 8.8 Phosphorus Magnesium Total Bilirubin AST ALT Alkaline Phosphatase C-Reactive Protein Total Protein Albumin Vitamin B12 TSH Urine Color Urine Appearance Urine pH Ur Specific [place] Urine Protein Urine Glucose (UA) Urine Ketones Urine Blood Urine Nitrite Urine Bilirubin Urine Urobilinogen Ur Leukocyte Esterase U Random Total Protein Ur Random Sodium 107 Ur Random Urea Nitrogn RPR Titer 08/12/18 08/12/18 08/12/18 14:36 14:36 14:36 WBC RBC Hgb Hct MCV MCH MCHC RDW Plt Count MPV Absolute Neuts (auto) Neutrophils % Lymphocytes % Monocytes % Eosinophils % Basophils % Nucleated RBC % ESR PT with INR INR PTT (Actin FS) Sodium Potassium Chloride Carbon Dioxide Anion Gap BUN Creatinine Creat Clearance w eGFR POC Glucometer Random Glucose Hemoglobin A1c % Lactic Acid Calcium Phosphorus Magnesium Total Bilirubin AST ALT Alkaline Phosphatase C-Reactive Protein Total Protein Albumin Vitamin B12 TSH Urine Color Yellow Urine Appearance Clear Urine pH 6.0 Ur Specific [place] 1.022 Urine Protein Negative Urine Glucose (UA) 1+ H Urine Ketones Negative Urine Blood Negative Urine Nitrite Negative Urine Bilirubin Negative Urine Urobilinogen 0.2 Ur Leukocyte Esterase Negative U Random Total Protein 29.8 H Ur Random Sodium Ur Random Urea Nitrogn 909 RPR Titer 08/12/18 08/12/18 08/13/18 17:11 20:44 06:15 WBC 7.2 RBC 4.12 Hgb 13.0 Hct 38.8 MCV 94.2 MCH 31.6 MCHC 33.6 RDW 13.3 Plt Count 186 MPV 8.6 Absolute Neuts (auto) 4.9 Neutrophils % 68.2 Lymphocytes % 20.7 Monocytes % 7.5 Eosinophils % 2.7 Basophils % 0.9 Nucleated RBC % 0 ESR 16 PT with INR INR PTT (Actin FS) Sodium Potassium Chloride Carbon Dioxide Anion Gap BUN Creatinine Creat Clearance w eGFR POC Glucometer 210 190 Random Glucose Hemoglobin A1c % Lactic Acid Calcium Phosphorus Magnesium Total Bilirubin AST ALT Alkaline Phosphatase C-Reactive Protein Total Protein Albumin Vitamin B12 TSH Urine Color Urine Appearance Urine pH Ur Specific [place] Urine Protein Urine Glucose (UA) Urine Ketones Urine Blood Urine Nitrite Urine Bilirubin Urine Urobilinogen Ur Leukocyte Esterase U Random Total Protein Ur Random Sodium Ur Random Urea Nitrogn RPR Titer 08/13/18 08/13/18 08/13/18 06:15 06:15 06:15 WBC RBC Hgb Hct MCV MCH MCHC RDW Plt Count MPV Absolute Neuts (auto) Neutrophils % Lymphocytes % Monocytes % Eosinophils % Basophils % Nucleated RBC % ESR Cancelled PT with INR INR PTT (Actin FS) Sodium 140 Potassium 4.6 Chloride 106 Carbon Dioxide 27 Anion Gap 7 L BUN 29 H Creatinine 1.4 H Creat Clearance w eGFR 50.40 POC Glucometer Random Glucose 129 H Hemoglobin A1c % Lactic Acid Calcium 8.5 Phosphorus 3.6 Magnesium 2.1 Total Bilirubin 1.0 AST 20 ALT 37 Alkaline Phosphatase 96 C-Reactive Protein < 0.3 Total Protein 5.9 L Albumin 3.1 L Vitamin B12 771 TSH 1.30 Urine Color Urine Appearance Urine pH Ur Specific [place] Urine Protein Urine Glucose (UA) Urine Ketones Urine Blood Urine Nitrite Urine Bilirubin Urine Urobilinogen Ur Leukocyte Esterase U Random Total Protein Ur Random Sodium Ur Random Urea Nitrogn RPR Titer 08/13/18 08/13/18 08/13/18 06:15 06:27 12:10 WBC RBC Hgb Hct MCV MCH MCHC RDW Plt Count MPV Absolute Neuts (auto) Neutrophils % Lymphocytes % Monocytes % Eosinophils % Basophils % Nucleated RBC % ESR PT with INR INR PTT (Actin FS) Sodium Potassium Chloride Carbon Dioxide Anion Gap BUN Creatinine Creat Clearance w eGFR POC Glucometer 131 184 Random Glucose Hemoglobin A1c % Lactic Acid Calcium Phosphorus Magnesium Total Bilirubin AST ALT Alkaline Phosphatase C-Reactive Protein Total Protein Albumin Vitamin B12 TSH Urine Color Urine Appearance Urine pH Ur Specific [place] Urine Protein Urine Glucose (UA) Urine Ketones Urine Blood Urine Nitrite Urine Bilirubin Urine Urobilinogen Ur Leukocyte Esterase U Random Total Protein Ur Random Sodium Ur Random Urea Nitrogn RPR Titer Nonreactive 08/13/18 08/13/18 08/14/18 16:56 21:32 05:45 WBC RBC Hgb Hct MCV MCH MCHC RDW Plt Count MPV Absolute Neuts (auto) Neutrophils % Lymphocytes % Monocytes % Eosinophils % Basophils % Nucleated RBC % ESR PT with INR INR PTT (Actin FS) Sodium Potassium Chloride Carbon Dioxide Anion Gap BUN Creatinine Creat Clearance w eGFR POC Glucometer 128 196 81 Random Glucose Hemoglobin A1c % Lactic Acid Calcium Phosphorus Magnesium Total Bilirubin AST ALT Alkaline Phosphatase C-Reactive Protein Total Protein Albumin Vitamin B12 TSH Urine Color Urine Appearance Urine pH Ur Specific [place] Urine Protein Urine Glucose (UA) Urine Ketones Urine Blood Urine Nitrite Urine Bilirubin Urine Urobilinogen Ur Leukocyte Esterase U Random Total Protein Ur Random Sodium Ur Random Urea Nitrogn RPR Titer 08/14/18 08/14/18 08/14/18 06:00 06:00 11:50 WBC 6.9 RBC 4.03 Hgb 12.7 Hct 37.7 MCV 93.5 MCH 31.5 MCHC 33.7 RDW 13.4 Plt Count 192 MPV 8.6 Absolute Neuts (auto) 4.5 Neutrophils % 65.3 Lymphocytes % 24.0 Monocytes % 7.2 Eosinophils % 2.6 Basophils % 0.9 Nucleated RBC % 0 ESR PT with INR INR PTT (Actin FS) Sodium 142 Potassium 4.6 Chloride 108 H Carbon Dioxide 28 Anion Gap 6 L BUN 23 H Creatinine 1.2 Creat Clearance w eGFR 60.21 POC Glucometer 177 Random Glucose 81 Hemoglobin A1c % Lactic Acid Calcium 8.6 Phosphorus 3.7 Magnesium 2.2 Total Bilirubin 0.8 AST 17 ALT 34 Alkaline Phosphatase 89 C-Reactive Protein Total Protein 5.8 L Albumin 3.0 L Vitamin B12 TSH Urine Color Urine Appearance Urine pH Ur Specific [place] Urine Protein Urine Glucose (UA) Urine Ketones Urine Blood Urine Nitrite Urine Bilirubin Urine Urobilinogen Ur Leukocyte Esterase U Random Total Protein Ur Random Sodium Ur Random Urea Nitrogn RPR Titer 08/14/18 08/14/18 08/15/18 17:10 21:36 06:00 WBC RBC Hgb Hct MCV MCH MCHC RDW Plt Count MPV Absolute Neuts (auto) Neutrophils % Lymphocytes % Monocytes % Eosinophils % Basophils % Nucleated RBC % ESR PT with INR INR PTT (Actin FS) Sodium 141 Potassium 4.0 Chloride 108 H Carbon Dioxide 27 Anion Gap 6 L BUN 22 H Creatinine 1.2 Creat Clearance w eGFR 60.21 POC Glucometer 126 204 Random Glucose 106 Hemoglobin A1c % Lactic Acid Calcium 8.4 L Phosphorus 3.3 Magnesium 2.3 Total Bilirubin AST ALT Alkaline Phosphatase C-Reactive Protein Total Protein Albumin Vitamin B12 TSH Urine Color Urine Appearance Urine pH Ur Specific [place] Urine Protein Urine Glucose (UA) Urine Ketones Urine Blood Urine Nitrite Urine Bilirubin Urine Urobilinogen Ur Leukocyte Esterase U Random Total Protein Ur Random Sodium Ur Random Urea Nitrogn RPR Titer 08/15/18 08/15/18 08/15/18 06:00 06:02 11:46 WBC RBC Hgb Hct MCV MCH MCHC RDW Plt Count MPV Absolute Neuts (auto) Neutrophils % Lymphocytes % Monocytes % Eosinophils % Basophils % Nucleated RBC % ESR PT with INR INR PTT (Actin FS) Sodium Potassium Chloride Carbon Dioxide Anion Gap BUN Creatinine Creat Clearance w eGFR POC Glucometer 110 137 Random Glucose Hemoglobin A1c % 11.2 H Lactic Acid Calcium Phosphorus Magnesium Total Bilirubin AST ALT Alkaline Phosphatase C-Reactive Protein Total Protein Albumin Vitamin B12 TSH Urine Color Urine Appearance Urine pH Ur Specific [place] Urine Protein Urine Glucose (UA) Urine Ketones Urine Blood Urine Nitrite Urine Bilirubin Urine Urobilinogen Ur Leukocyte Esterase U Random Total Protein Ur Random Sodium Ur Random Urea Nitrogn RPR Titer 08/15/18 08/15/18 08/16/18 16:22 21:56 06:01 WBC RBC Hgb Hct MCV MCH MCHC RDW Plt Count MPV Absolute Neuts (auto) Neutrophils % Lymphocytes % Monocytes % Eosinophils % Basophils % Nucleated RBC % ESR PT with INR INR PTT (Actin FS) Sodium Potassium Chloride Carbon Dioxide Anion Gap BUN Creatinine Creat Clearance w eGFR POC Glucometer 156 122 93 Random Glucose Hemoglobin A1c % Lactic Acid Calcium Phosphorus Magnesium Total Bilirubin AST ALT Alkaline Phosphatase C-Reactive Protein Total Protein Albumin Vitamin B12 TSH Urine Color Urine Appearance Urine pH Ur Specific [place] Urine Protein Urine Glucose (UA) Urine Ketones Urine Blood Urine Nitrite Urine Bilirubin Urine Urobilinogen Ur Leukocyte Esterase U Random Total Protein Ur Random Sodium Ur Random Urea Nitrogn RPR Titer 08/16/18 08/16/18 08/16/18 11:22 16:28 22:12 WBC RBC Hgb Hct MCV MCH MCHC RDW Plt Count MPV Absolute Neuts (auto) Neutrophils % Lymphocytes % Monocytes % Eosinophils % Basophils % Nucleated RBC % ESR PT with INR INR PTT (Actin FS) Sodium Potassium Chloride Carbon Dioxide Anion Gap BUN Creatinine Creat Clearance w eGFR POC Glucometer 220 145 204 Random Glucose Hemoglobin A1c % Lactic Acid Calcium Phosphorus Magnesium Total Bilirubin AST ALT Alkaline Phosphatase C-Reactive Protein Total Protein Albumin Vitamin B12 TSH Urine Color Urine Appearance Urine pH Ur Specific [place] Urine Protein Urine Glucose (UA) Urine Ketones Urine Blood Urine Nitrite Urine Bilirubin Urine Urobilinogen Ur Leukocyte Esterase U Random Total Protein Ur Random Sodium Ur Random Urea Nitrogn RPR Titer 08/17/18 08/17/18 08/17/18 06:09 06:45 06:45 WBC 5.8 RBC 4.06 Hgb 12.7 Hct 38.1 MCV 93.9 MCH 31.3 MCHC 33.4 RDW 13.0 Plt Count 185 MPV 8.7 Absolute Neuts (auto) Neutrophils % Lymphocytes % Monocytes % Eosinophils % Basophils % Nucleated RBC % ESR PT with INR INR PTT (Actin FS) Sodium 139 Potassium 3.6 Chloride 105 Carbon Dioxide 28 Anion Gap 6 L BUN 20 H Creatinine 1.1 Creat Clearance w eGFR 66.57 POC Glucometer 92 Random Glucose 96 Hemoglobin A1c % Lactic Acid Calcium 8.5 Phosphorus Magnesium Total Bilirubin 0.9 AST 39 H ALT 55 Alkaline Phosphatase 87 C-Reactive Protein Total Protein 6.3 L Albumin 3.3 L Vitamin B12 TSH Urine Color Urine Appearance Urine pH Ur Specific [place] Urine Protein Urine Glucose (UA) Urine Ketones Urine Blood Urine Nitrite Urine Bilirubin Urine Urobilinogen Ur Leukocyte Esterase U Random Total Protein Ur Random Sodium Ur Random Urea Nitrogn RPR Titer 08/17/18 08/17/18 08/18/18 11:32 19:48 05:30 WBC 7.5 RBC 3.95 L Hgb 12.4 Hct 36.6 MCV 92.8 MCH 31.4 MCHC 33.8 RDW 13.1 Plt Count 176 MPV 8.8 Absolute Neuts (auto) 5.6 Neutrophils % 74.7 Lymphocytes % 15.3 D Monocytes % 7.5 Eosinophils % 1.8 Basophils % 0.7 Nucleated RBC % 0 ESR PT with INR INR PTT (Actin FS) Sodium Potassium Chloride Carbon Dioxide Anion Gap BUN Creatinine Creat Clearance w eGFR POC Glucometer 151 106 Random Glucose Hemoglobin A1c % Lactic Acid Calcium Phosphorus Magnesium Total Bilirubin AST ALT Alkaline Phosphatase C-Reactive Protein Total Protein Albumin Vitamin B12 TSH Urine Color Urine Appearance Urine pH Ur Specific [place] Urine Protein Urine Glucose (UA) Urine Ketones Urine Blood Urine Nitrite Urine Bilirubin Urine Urobilinogen Ur Leukocyte Esterase U Random Total Protein Ur Random Sodium Ur Random Urea Nitrogn RPR Titer 08/18/18 08/18/18 08/18/18 05:30 05:40 11:35 WBC RBC Hgb Hct MCV MCH MCHC RDW Plt Count MPV Absolute Neuts (auto) Neutrophils % Lymphocytes % Monocytes % Eosinophils % Basophils % Nucleated RBC % ESR PT with INR INR PTT (Actin FS) Sodium 139 Potassium 4.0 Chloride 106 Carbon Dioxide 26 Anion Gap 7 L BUN 22 H Creatinine 1.2 Creat Clearance w eGFR 60.21 POC Glucometer 127 177 Random Glucose 145 H Hemoglobin A1c % Lactic Acid Calcium 8.5 Phosphorus Magnesium Total Bilirubin 0.8 AST 37 ALT 51 Alkaline Phosphatase 85 C-Reactive Protein Total Protein 5.9 L Albumin 3.2 L Vitamin B12 TSH Urine Color Urine Appearance Urine pH Ur Specific [place] Urine Protein Urine Glucose (UA) Urine Ketones Urine Blood Urine Nitrite Urine Bilirubin Urine Urobilinogen Ur Leukocyte Esterase U Random Total Protein Ur Random Sodium Ur Random Urea Nitrogn RPR Titer 08/18/18 08/18/18 08/19/18 16:35 22:23 06:14 WBC RBC Hgb Hct MCV MCH MCHC RDW Plt Count MPV Absolute Neuts (auto) Neutrophils % Lymphocytes % Monocytes % Eosinophils % Basophils % Nucleated RBC % ESR PT with INR INR PTT (Actin FS) Sodium Potassium Chloride Carbon Dioxide Anion Gap BUN Creatinine Creat Clearance w eGFR POC Glucometer 182 196 119 Random Glucose Hemoglobin A1c % Lactic Acid Calcium Phosphorus Magnesium Total Bilirubin AST ALT Alkaline Phosphatase C-Reactive Protein Total Protein Albumin Vitamin B12 TSH Urine Color Urine Appearance Urine pH Ur Specific [place] Urine Protein Urine Glucose (UA) Urine Ketones Urine Blood Urine Nitrite Urine Bilirubin Urine Urobilinogen Ur Leukocyte Esterase U Random Total Protein Ur Random Sodium Ur Random Urea Nitrogn RPR Titer 08/19/18 08/19/18 08/19/18 06:30 11:40 16:35 WBC RBC Hgb Hct MCV MCH MCHC RDW Plt Count MPV Absolute Neuts (auto) Neutrophils % Lymphocytes % Monocytes % Eosinophils % Basophils % Nucleated RBC % ESR PT with INR INR PTT (Actin FS) Sodium 139 Potassium 4.5 Chloride 106 Carbon Dioxide 29 Anion Gap 4 L BUN 17 Creatinine 1.1 Creat Clearance w eGFR 66.57 POC Glucometer 146 133 Random Glucose 112 H Hemoglobin A1c % Lactic Acid Calcium 8.6 Phosphorus Magnesium Total Bilirubin AST ALT Alkaline Phosphatase C-Reactive Protein Total Protein Albumin Vitamin B12 TSH Urine Color Urine Appearance Urine pH Ur Specific [place] Urine Protein Urine Glucose (UA) Urine Ketones Urine Blood Urine Nitrite Urine Bilirubin Urine Urobilinogen Ur Leukocyte Esterase U Random Total Protein Ur Random Sodium Ur Random Urea Nitrogn RPR Titer Active Medications Generic Name Dose Route Start Last Admin Trade Name Toni PRN Reason Stop Dose Admin Atorvastatin Calcium 20 mg 08/18/18 22:00 08/18/18 22:04 Lipitor - PO 20 mg HS KACY Administration Citalopram Hydrobromide 20 mg 08/18/18 10:00 08/19/18 09:29 Celexa - PO 20 mg DAILY KACY Administration Clopidogrel Bisulfate 75 mg 08/17/18 19:15 08/19/18 09:29 Plavix - PO 75 mg DAILY KACY Administration Collagenase 1 applic 08/18/18 10:00 08/19/18 09:30 Santyl - TP 1 applic DAILY KACY Administration Protocol Emollient Ointment 1 applic 08/17/18 22:00 08/19/18 09:29 Aquaphor - TP 1 applic BID KACY Administration Heparin Sodium (Porcine) 5,000 unit 08/17/18 22:00 08/19/18 09:29 Heparin - SQ 5,000 unit BID KACY Administration Ceftriaxone Sodium 2 gm/ 100 mls @ 100 mls/hr 08/19/18 10:00 08/19/18 09:29 Dextrose IVPB 100 mls/hr DAILY KACY Administration Protocol Insulin Aspart 1 vial 08/17/18 22:00 08/19/18 17:30 Novolog Vial Sliding Scale - SQ Not Given ACHS [facility] Protocol Insulin Detemir 15 units 08/18/18 07:00 08/19/18 06:16 Levemir Vial SQ 15 units DAILY@0700 KACY Administration Lactic Acid 1 applic 08/17/18 19:20 08/18/18 22:07 Lac-Hydrin 12 TP 1 applic Q12H PRN Administration DRY SKIN Metoprolol Tartrate 25 mg 08/18/18 10:00 08/19/18 09:29 Lopressor - PO 25 mg DAILY KACY Administration Triamcinolone Acetonide 1 applic 08/17/18 22:00 08/19/18 09:30 Aristocort 0.1% Ointment - TP 1 applic BID KACY Administration Microbiology 08/11/18 20:00 Blood - Peripheral Venous Blood Culture - Final NO GROWTH AFTER 5 DAYS INCUBATION 08/11/18 20:00 Blood - Peripheral Venous Blood Culture - Final NO GROWTH AFTER 5 DAYS INCUBATION Condition: Stable - Instructions Diet, Activity, Other Instructions: follow up with podiatry Dr Mcelroy continue with current medication regimen as prescribed continue with antibiotic therapy Disposition: [facility] - Home Medications Comprehensive Discharge Medication List: Ambulatory Orders Atorvastatin Calcium [Lipitor] 20 mg PO DAILY 08/11/18 Citalopram Hydrobromide [Celexa -] 20 mg PO DAILY 08/11/18 Insulin Lispro [Humalog] 0 unit SQ TID 08/11/18 Metoprolol Tartrate 25 mg PO DAILY 08/11/18 Ammonium Lactate Lotion [Lac-Hydrin 12] 1 applic TP Q12H PRN bottle 08/18/18 Ceftriaxone [Rocephin 1Gm Ivpb (Pre-Docked)] 2 gm IVPB DAILY 37 Days #37 bag Clopidogrel Bisulfate [Plavix -] 75 mg PO DAILY tablet 08/18/18 Collagenase Clostridium Hist. [Santyl -] 1 applic TP DAILY tube 08/18/18 Heparin - 5,000 unit SQ BID vial 08/18/18 Insulin (Levemir) [Levemir Vial] 15 units SQ DAILY@0700 units 08/18/18 Insulin Sliding Scale [Novolog Vial Sliding Scale -] 1 vial SQ ACHS units 08/18 Sodium Polystyrene Sulfonate [Kayexalate -] 30 gm PO MoWeFr@1000 bottle Triamcinolone 0.1% Ointment [Aristocort 0.1% Ointment -] 1 applic TP BID applic 08/18/18
[2018-08-19 18:32] VITALS: BP 152/79; PULSE 65; TEMP 97.7
== END 2018-08-19 18:39 | DRG 253 ==
LOC: JER 18:18 → JERBED 19:54 → J7W 22:30
PROVIDERS: ADMIT Family Medicine; ATTEND Family Medicine
PROC: B41FYZZ Fluoroscopy of Right Lower Extremity Arteries using Other Contrast (ICD-10-PCS; 2018-08-17)
PROC: 047P3Z1 Dilation of Right Anterior Tibial Artery using Drug-Coated Balloon, Percutaneous Approach (ICD-10-PCS; principal; 2018-08-17 17:00)
DX: E11.51 Type 2 diabetes mellitus with diabetic peripheral angiopathy without gangrene (principal); I45.2 Bifascicular block; L97.429 Non-pressure chronic ulcer of left heel and midfoot with unspecified severity; L03.116 Cellulitis of left lower limb; N17.9 Acute kidney failure, unspecified; E11.22 Type 2 diabetes mellitus with diabetic chronic kidney disease; L03.031 Cellulitis of right toe; I12.9 Hypertensive chronic kidney disease with stage 1 through stage 4 chronic kidney disease, or unspecified chronic kidney disease; E11.621 Type 2 diabetes mellitus with foot ulcer; E11.42 Type 2 diabetes mellitus with diabetic polyneuropathy; N18.3 Chronic kidney disease, stage 3 (moderate); I70.291 Other atherosclerosis of native arteries of extremities, right leg; E87.5 Hyperkalemia; I25.10 Atherosclerotic heart disease of native coronary artery without angina pectoris; F03.90 Unspecified dementia, unspecified severity, without behavioral disturbance, psychotic disturbance, mood disturbance, and anxiety; Z95.5 Presence of coronary angioplasty implant and graft; Z86.73 Personal history of transient ischemic attack (TIA), and cerebral infarction without residual deficits; L40.9 Psoriasis, unspecified; Z79.4 Long term (current) use of insulin; Z95.1 Presence of aortocoronary bypass graft; E66.9 Obesity, unspecified; Z68.29 Body mass index [BMI] 29.0-29.9, adult; G20 Parkinson's disease; E11.65 Type 2 diabetes mellitus with hyperglycemia
CPT/HCPCS: 36415; 36569; 70551-TC; 71046-TC-FY; 73630-TC-LT; 73630-TC-RT-FY; 73718-TC-LT; 73718-TC-RT; 76000-TC-FY; 76775-TC; 80048; 80053; 81003; 82607; 82962; 83036; 83605; 83735; 84100; 84156; 84300; 84443; 84540; 85025; 85027; 85610; 85651; 85730; 86140; 86593; 87040; 93005; 93010; 93880-TC; 94760; 97116-GP; 97161-GP; 99285-25; J1644; J7030